=== PATIENT | male | born 1955 | race Caucasian/White ===

== ENCOUNTER 2019-02-23 10:34 | Inpatient (IN) | payer OTHER ==
[2019-02-23 14:03] VITALS: BMI 30.8
--- NOTE | 2019-02-23 15:15 | HP ---
CIWA Score Nausea/Vomitin Muscle Tremors: 3 Anxiety: 3 Agitation: 3 Paroxysmal Sweats: 1-Minimal Palms Moist Orientation: 0-Oriented Tacttile Disturbances: 1-Very Mild Itch/Numbness Auditory Disturbances: 1-Very Mild Visual Disturbances: 0-None Headache: 1-Very Mild CIWA-Ar Total Score: 16 - Admission Criteria [facility] Guidelines: Admission for Medically Managed Detox: Requires at least one of the followin. CIWA greater than 12 2. Seizures within the past 24 hours 3. Delirium tremens within the past 24 hours 4. Hallucinations within the past 24 hours 5. Acute intervention needed for co occurring medical disorder 6. Acute intervention needed for co occurring psychiatric disorder 7. Severe withdrawal that cannot be handled at a lower level of care (continued vomiting, continued diarrhea, abnormal vital signs) requiring intravenous medication and/or fluids 8. Admission ROS [facility] - HPI Chief Complaint: i need help to stop drinking alcohol Allergies/Adverse Reactions: Allergies Allergy/AdvReac Type Severity Reaction Status Date / Time Fish Containing Products Allergy Severe Rash Verified 02/23/19 13:25 No Known Drug Allergies Allergy Verified 02/23/19 16:03 NKDA Allergy Uncoded 02/23/19 13:25 History of Present Illness: this 64 years old male with alcohol dependence,seeking detox,withdrawal symptom, last detox 03/22/15 to 03/26/15 history of hypertension,dm type 2,arthritis,gout,hemorrhoid, history of right inguinal hernia repair but recur syncope alcohol related cellulitis left thigh arthritis of right knee hemorrhoid longest sobriety 17 months plan for rehab after detox Exam Limitations: No Limitations - Ebola screening Have you traveled outside of the country in the last 21 days: No (N) Have you had contact with anyone from an Ebola affected area: No Do you have a fever: No - Review of Systems Constitutional: Loss of Appetite, Malaise, Night Sweats, Changes in sleep, Weakness EENT: reports: Nose Congestion Respiratory: reports: No Symptoms reported Cardiac: reports: No Symptoms Reported GI: reports: Nausea, Poor Appetite, Abdominal cramping : reports: No Symptoms Reported Musculoskeletal: reports: Back Pain, Joint Pain, Muscle Pain, Joint Stiffness, Other (arthritis of right knee) Integumentary: reports: Dryness Neuro: reports: Headache, Tremors Endocrine: reports: No Symptoms Reported, Other (type 2 dm) Hematology: reports: No Symptoms Reported Psychiatric: reports: No Sypmtoms Reported, Judgement Intact, Mood/Affect Appropiate, Orientated x3, Anxious, other (insomnia) Patient History - Patient Medical History Hx Anemia: No Hx Asthma: Yes (ON ALBUTEROL INHALER) Hx Chronic Obstructive Pulmonary Disease (COPD): No Hx Cancer: No Hx Cardiac Disorders: No Hx Congestive Heart Failure: No Hx Hypertension: Yes (ON LISINOPRIL) Hx Hypercholesterolemia: Yes (WAS ON LIPITOR BUT NOT TAKING NOW. RESOLVED PMD AWARE.) HX Cerebrovascular Accident: No Hx Seizures: No Hx Dementia: No Hx Diabetes: Yes (ON METFORMIN) Hx Gastrointestinal Disorders: Yes (ACID REFLUX--ON NEXIUM) Hx Liver Disease: No Hx Genitourinary Disorders: No Hx Sexually Transmitted Disorders: No Hx Renal Disease (ESRD): No Hx Thyroid Disease: No Hx Human Immunodeficiency Virus (HIV): No (LAST 12/16/14 NEGATIVE) Hx Hepatitis C: No Hx Depression: Yes (NO MEDICATION) Hx Suicide Attempt: No (DENIES) Hx Bipolar Disorder: No Hx Schizophrenia: No Other Medical History: no sucidal,no homicidal,arthritis of right knee, deformity of left 2nd toe, - Patient Surgical History Past Surgical History: Yes Hx Neurologic Surgery: No Hx Cataract Extraction: No Hx Cardiac Surgery: No Hx Lung Surgery: No Hx Breast Surgery: No Hx Breast Biopsy: No Hx Abdominal Surgery: Yes ("MESH FOR HERNIA" right in [place] but recurred) Hx Appendectomy: No Hx Cholecystectomy: No Hx Genitourinary Surgery: No Hx Section: No Hx Orthopedic Surgery: No Anesthesia Reaction: No - PPD History Previous Implant?: Yes Documented Results: Negative w/o proof Date: 12/18/14 Results: 0 mm PPD to be Administered?: Yes - Smoking Cessation Smoking history: Current every day smoker Have you smoked in the past 12 months: Yes Aproximately how many cigarettes per day: 40 Cigars Per Day: 0 Hx Chewing Tobacco Use: No Initiated information on smoking cessation: Yes 'Breaking Loose' booklet given: 02/23/19 - Substance & Tx. History Hx Alcohol Use: Yes Hx Substance Use: No Substance Use Type: Alcohol Hx Substance Use Treatment: Yes ([facility] 03/22/15 to 03/26/15) - Substances abused Alcohol Substance route: Oral Frequency: Daily Amount used: 2 pints vodka, case beer/day Age of first use: 17 Date of last use: 02/23/19 Family Disease History - Family Disease History Family Disease History: Heart Disease: Mother (ASTHMA,), Respiratory: Mother, Other: Father (car accident,), Sister (1ST SISTER-GOUT; 2ND SISTER-ASTHMA/EMPHYSEMA) Admission Physical Exam [facility] - Vital Signs Vital Signs: Vital Signs - 24 hr 02/23/19 13:54 Temperature 99 F Pulse Rate 119 H Respiratory 20 Rate Blood Pressure 123/85 - Physical General Appearance: Yes: Moderate Distress, Tremorous, Irritable, Sweating, Anxious HEENTM: Yes: Normal ENT Inspection, [place], Pharynx Normal Respiratory: Yes: Lungs Clear, Normal Breath Sounds, No Respiratory Distress, Other (asthma) Neck: Yes: Within Normal Limits, Supple, Trachea in good position Breast: Yes: Within Normal Limits Cardiology: Yes: Tachycardia Abdominal: Yes: Within Normal Limits, Normal Bowel Sounds, Non Tender, Flat, Soft, Surgical Scar (recurent right inguinal hernia) Genitourinary: Yes: Within Normal Limits Back: Yes: Muscle Spasm Musculoskeletal: Yes: Back pain, Muscle Pain Extremities: Yes: Tremors, Other (swelling with pain right knee deformity of left 2nd toe cellulitis left thigh) Neurological: Yes: power distribution engineer II-XII NML intact, Fully Oriented, Alert, Motor Strength 5/5 Integumentary: Yes: Dry Lymphatic: Yes: Within Normal Limits - Diagnostic (1) Alcohol dependence with uncomplicated withdrawal Status: Acute (2) Asthma Status: Acute Qualifiers: Asthma severity: unspecified severity Asthma persistence: unspecified Asthma complication type: uncomplicated (3) Hypercholesterolemia Status: Acute (4) Syncope Status: Acute Qualifiers: Syncope type: unspecified Qualified Code(s): R55 - Syncope and collapse (5) GERD (gastroesophageal reflux disease) Status: Chronic Qualifiers: Esophagitis presence: without esophagitis Qualified Code(s): K21.9 - Gastro -esophageal reflux disease without esophagitis (6) Gout Status: Chronic Qualifiers: Gout site: unspecified site Gout etiology: unspecified cause Chronicity: chronic Presence of tophus: without tophus Qualified Code(s): M1A.9XX0 - Chronic gout, unspecified, without tophus (tophi) (7) Hypertension Status: Chronic Qualifiers: Hypertension type: essential hypertension Qualified Code(s): I10 - Essential (primary) hypertension (8) Type 2 diabetes mellitus Status: Chronic Qualifiers: Diabetes mellitus rodent exterminator insulin use: without rodent exterminator use Diabetes mellitus complication status: with other specified complication Qualified Code (s): E11.69 - Type 2 diabetes mellitus with other specified complication (9) Cellulitis of left thigh Status: Acute (10) Hemorrhoid Status: Acute Qualifiers: Hemorrhoid type: unspecified Qualified Code(s): K64.9 - Unspecified hemorrhoids Cleared for Admission S - Detox or Rehab [facility] Level of Care: Medically Managed Detox Regimen/Protocol: Librium Inpatient Rehab Admission - Rehab Decision to Admit Inpatient rehab admission?: No
[2019-02-23] MEDS ORDERED: BISMUTH SUBSALICYLATE 524 MG/30 ML UD PO PRN (15:27)
[2019-02-23] MEDS ORDERED: METHOCARBAMOL 500 MG TABLET PO PRN (15:27)
[2019-02-23] MEDS ORDERED: MAGNESIUM CITRATE 300 ML BOTTLE PO PRN (15:27)
[2019-02-23] MEDS ORDERED: NICOTINE POLACRILEX 2 MG GUM BUC PRN (15:27)
[2019-02-23] MEDS ORDERED: ACETAMINOPHEN 325 MG TABLET (FP) PO PRN ×2 (15:27)
[2019-02-23] MEDS ORDERED: chlordiazePOXIDE HCL 25 MG CAPSULE PO PRN (15:27)
[2019-02-23] MEDS ORDERED: MAG HYDROX/AL HYDROX/SIMETH 30 ML UNIT-DOSE CUP PO PRN (15:27)
[2019-02-23] MEDS ORDERED: IBUPROFEN 400 MG TABLET (FP) PO PRN (15:27)
[2019-02-23] MEDS ORDERED: MAGNESIUM HYDROX 2400MG/30ML ORAL SUSPENSION 30 ML CUP PO PRN (15:27)
[2019-02-23] MEDS ORDERED: MENTHOL/PHENOL 1 EACH UD MM PRN (15:27)
[2019-02-23] MEDS ORDERED: hydrOXYzine PAMOATE 25 MG CAPSULE (FP) PO PRN (15:27)
[2019-02-23 16:36] LABS: HEMATOCRIT 35.4 % (35.4-49); MCH 29.3 pg (25.7-33.7); MCHC 33.8 g/dl (32.0-35.9); MEAN CELL VOLUME 86.5 fl (80-96); RBC 4.09 M/mm3 (4.00-5.60); RDW 14.1 % (11.9-15.9); WHITE BLOOD COUNT 6.9 K/mm3 (4.0-10.0)
[2019-02-23 16:42] LABS: ALBUMIN 3.9 g/dl (3.4-5.0); BILIRUBIN,TOTAL 0.2 mg/dL (0.2-1); BLOOD UREA NITROGEN 7.7 mg/dL (7-18); CALCIUM 8.6 mg/dL (8.5-10.1); CREATININE 0.7 mg/dL (0.55-1.3); TOT PROT 7.2 g/dl (6.4-8.2)
[2019-02-23] MEDS: predniSONE 20 MG TABLET (UD) PO SCH (17:18)
[2019-02-23] MEDS: CEPHALEXIN MONOHYDRATE 500 MG CAPSULE (UD) PO SCH ×2 (17:19→23:13)
[2019-02-23] MEDS: LISINOPRIL 20 MG TABLET (FP) PO SCH (17:19)
[2019-02-23] MEDS: metFORMIN HCL 500 MG TABLET (FP) PO SCH (17:19)
[2019-02-23] MEDS: chlordiazePOXIDE HCL 25 MG CAPSULE PO SCH ×2 (17:19→22:26)
[2019-02-23 18:46] LABS: PLATELET COUNT 161 K/MM3 (134-434)
[2019-02-23] MEDS: THIAMINE HCL 100 MG TABLET (FP) PO SCH (22:26)
[2019-02-23] MEDS: MELATONIN 5 MG TABLETS PO PRN (22:26)
[2019-02-23] MEDS: HYDROCORTISONE ACETATE 25 MG/SUPP.RECT PR SCH (22:28)
[2019-02-24] MEDS: CEPHALEXIN MONOHYDRATE 500 MG CAPSULE (UD) PO SCH ×4 (05:29→23:22)
[2019-02-24] MEDS: chlordiazePOXIDE HCL 25 MG CAPSULE PO SCH ×4 (05:29→22:13)
[2019-02-24] MEDS: metFORMIN HCL 500 MG TABLET (FP) PO SCH ×2 (07:56→18:03)
[2019-02-24] MEDS: METOPROLOL TARTRATE 50 MG TABLET (FP) PO SCH (10:12)
[2019-02-24] MEDS: LISINOPRIL 20 MG TABLET (FP) PO SCH (10:12)
[2019-02-24] MEDS: PRENATAL VITAMINS W/ FOLIC ACID TABLET (FP) PO SCH (10:12)
[2019-02-24] MEDS: PANTOPRAZOLE 40 MG TABLET (FP) PO SCH (10:13)
[2019-02-24] MEDS: IBUPROFEN 600 MG TABLET (FP) PO PRN (10:13)
[2019-02-24 10:57] LABS: URINE APPEARANCE CLEAR; URINE BILIRUBIN NEGATIVE (NEGATIVE); URINE COLOR YELLOW; URINE GLUCOSE (UA) NEGATIVE (NEGATIVE); URINE KETONE NEGATIVE (NEGATIVE); URINE LEUK ESTERASE NEGATIVE (NEGATIVE); URINE NITRITE NEGATIVE (NEGATIVE); URINE PROTEIN NEGATIVE (NEGATIVE); URINE UROBILINOGEN 0.2 mg/dL (0.2-1.0)
--- NOTE | 2019-02-24 11:03 | PN ---
S CIWA - CIWA Score Nausea/Vomitin-No Nausea/No Vomiting Muscle Tremors: 2 Anxiety: 2 Agitation: 2 Paroxysmal Sweats: 3 Orientation: 0-Oriented Tacttile Disturbances: 0-None Auditory Disturbances: 0-None Visual Disturbances: 0-None Headache: 2-Mild CIWA-Ar Total Score: 11 S Progress Note (SOAP) Subjective: c/o headache, right knee pain, anxiety, and shakes. Objective: 02/24/19 11:01 Vital Signs 02/24/19 02/24/19 02/24/19 03:30 04:00 04:30 Temperature Pulse Rate 101 H 101 H 94 H Respiratory 18 Rate Blood Pressure 02/24/19 02/24/19 02/24/19 05:00 05:30 06:00 Temperature Pulse Rate 88 82 76 Respiratory 18 18 18 Rate Blood Pressure 02/24/19 02/24/19 02/24/19 06:16 06:30 07:00 Temperature 97.0 F L Pulse Rate 70 70 72 Respiratory 18 18 18 Rate Blood Pressure 139/87 02/24/19 02/24/19 02/24/19 07:30 08:00 08:30 Temperature Pulse Rate 74 76 80 Respiratory 18 18 16 Rate Blood Pressure 02/24/19 09:33 Temperature 97.2 F L Pulse Rate 81 Respiratory 20 Rate Blood Pressure 128/90 Lab Results WBC 6.9 K/mm3 (4.0-10.0) 02/23/19 15:30 RBC 4.09 M/mm3 (4.00-5.60) 02/23/19 15:30 Hgb 12.0 GM/dL (11.7-16.9) 02/23/19 15:30 Hct 35.4 % (35.4-49) 02/23/19 15:30 MCV 86.5 fl (80-96) 02/23/19 15:30 MCHC 33.8 g/dl (32.0-35.9) 02/23/19 15:30 RDW 14.1 % (11.9-15.9) 02/23/19 15:30 Plt Count 161 K/MM3 (134-434) D 02/23/19 15:30 Sodium 138 mmol/L (136-145) 02/23/19 15:30 Potassium 4.0 mmol/L (3.5-5.1) 02/23/19 15:30 Chloride 104 mmol/L (98-107) 02/23/19 15:30 Carbon Dioxide 26 mmol/L (21-32) 02/23/19 15:30 Anion Gap 7 MMOL/L (8-16) L 02/23/19 15:30 BUN 7.7 mg/dL (7-18) 02/23/19 15:30 Creatinine 0.7 mg/dL (0.55-1.3) 02/23/19 15:30 Random Glucose 91 mg/dL (74-106) 02/23/19 15:30 Calcium 8.6 mg/dL (8.5-10.1) 02/23/19 15:30 Labs noted. Assessment: 02/24/19 11:02 AOX3, in no acute distress Full ROM, ambulating in the unit with a cane. Withdrawal symptoms. Plan: continue detox.
[2019-02-24] MEDS: predniSONE 20 MG TABLET (UD) PO SCH ×2 (12:16→22:16)
[2019-02-24] MEDS ORDERED: predniSONE 20 MG TABLET (UD) PO SCH (19:48)
--- NOTE | 2019-02-24 19:50 | PN ---
S Progress Note Note: Prednisone changed to 8pm daily as per patient's request. As per RN, he refused it this morning because he was taking it in the evening at home.
[2019-02-24] MEDS: HYDROCORTISONE ACETATE 25 MG/SUPP.RECT PR SCH (22:13)
[2019-02-24] MEDS: THIAMINE HCL 100 MG TABLET (FP) PO SCH (22:13)
[2019-02-24] MEDS: MELATONIN 5 MG TABLETS PO PRN (22:13)
[2019-02-24] MEDS: NYSTATIN 100,000 UNIT/GM TOPICAL CREAM 15 GM TUBE TP SCH (23:21)
[2019-02-25] MEDS: CEPHALEXIN MONOHYDRATE 500 MG CAPSULE (UD) PO SCH ×4 (05:38→23:08)
[2019-02-25] MEDS: chlordiazePOXIDE HCL 25 MG CAPSULE PO SCH ×2 (05:38→10:37)
[2019-02-25] MEDS: metFORMIN HCL 500 MG TABLET (FP) PO SCH ×2 (06:01→17:27)
[2019-02-25] MEDS: PANTOPRAZOLE 40 MG TABLET (FP) PO SCH (10:36)
[2019-02-25] MEDS: METOPROLOL TARTRATE 50 MG TABLET (FP) PO SCH (10:36)
[2019-02-25] MEDS: PRENATAL VITAMINS W/ FOLIC ACID TABLET (FP) PO SCH (10:37)
[2019-02-25] MEDS: LISINOPRIL 20 MG TABLET (FP) PO SCH (10:37)
[2019-02-25] MEDS: NYSTATIN 100,000 UNIT/GM TOPICAL CREAM 15 GM TUBE TP SCH ×2 (10:38→23:08)
[2019-02-25] MEDS: IBUPROFEN 600 MG TABLET (FP) PO PRN (10:40)
--- NOTE | 2019-02-25 11:59 | PN ---
S CIWA - CIWA Score Nausea/Vomitin-Mild Nausea/No Vomiting Muscle Tremors: 2 Anxiety: 2 Agitation: 2 Paroxysmal Sweats: 1-Minimal Palms Moist Orientation: 0-Oriented Tacttile Disturbances: 0-None Auditory Disturbances: 0-None Visual Disturbances: 1-Very Mild Sensitivity Headache: 1-Very Mild CIWA-Ar Total Score: 10 BHS Progress Note (SOAP) Subjective: CO GENERALIZED DISCOMFORT, ANXIOUS, NOT SLEEPING CO PRURITIC RASH CW BASELINE Objective: 02/25/19 11:56 Laboratory Tests 02/23/19 02/23/19 02/23/19 15:30 15:30 15:30 WBC 6.9 RBC 4.09 Hgb 12.0 Hct 35.4 MCV 86.5 MCH 29.3 MCHC 33.8 RDW 14.1 Plt Count 161 D MPV 7.0 L D Sodium 138 Potassium 4.0 Chloride 104 Carbon Dioxide 26 Anion Gap 7 L BUN 7.7 Creatinine 0.7 Est GFR (CKD-EPI)AfAm 117.22 Est GFR (CKD-EPI)NonAf 101.14 POC Glucometer Random Glucose 91 Calcium 8.6 Total Bilirubin 0.2 AST 27 ALT 27 Alkaline Phosphatase 78 Total Protein 7.2 Albumin 3.9 Urine Color Urine Appearance Urine pH Ur Specific [place] Urine Protein Urine Glucose (UA) Urine Ketones Urine Blood Urine Nitrite Urine Bilirubin Urine Urobilinogen Ur Leukocyte Esterase RPR Titer Nonreactive 02/23/19 02/23/19 02/24/19 15:34 17:22 05:28 WBC RBC Hgb Hct MCV MCH MCHC RDW Plt Count MPV Sodium Potassium Chloride Carbon Dioxide Anion Gap BUN Creatinine Est GFR (CKD-EPI)AfAm Est GFR (CKD-EPI)NonAf POC Glucometer 93 102 106 Random Glucose Calcium Total Bilirubin AST ALT Alkaline Phosphatase Total Protein Albumin Urine Color Urine Appearance Urine pH Ur Specific [place] Urine Protein Urine Glucose (UA) Urine Ketones Urine Blood Urine Nitrite Urine Bilirubin Urine Urobilinogen Ur Leukocyte Esterase RPR Titer 02/24/19 02/24/19 02/25/19 09:00 16:47 05:37 WBC RBC Hgb Hct MCV MCH MCHC RDW Plt Count MPV Sodium Potassium Chloride Carbon Dioxide Anion Gap BUN Creatinine Est GFR (CKD-EPI)AfAm Est GFR (CKD-EPI)NonAf POC Glucometer 110 175 Random Glucose Calcium Total Bilirubin AST ALT Alkaline Phosphatase Total Protein Albumin Urine Color Yellow Urine Appearance Clear Urine pH 5.0 Ur Specific [place] 1.009 L Urine Protein Negative Urine Glucose (UA) Negative Urine Ketones Negative Urine Blood Negative Urine Nitrite Negative Urine Bilirubin Negative Urine Urobilinogen 0.2 Ur Leukocyte Esterase Negative RPR Titer Vital Signs - 24 hr 02/24/19 02/24/19 02/24/19 12:00 12:30 13:00 Temperature Pulse Rate 81 81 81 Respiratory 20 20 18 Rate Blood Pressure 02/24/19 02/24/19 02/24/19 13:30 13:41 14:30 Temperature 98.7 F Pulse Rate 80 71 86 Respiratory 18 18 18 Rate Blood Pressure 137/86 02/24/19 02/24/19 02/24/19 15:00 15:30 16:00 Temperature Pulse Rate 77 76 77 Respiratory 18 18 18 Rate Blood Pressure 02/24/19 02/24/19 02/24/19 16:30 17:00 17:30 Temperature Pulse Rate 78 76 71 Respiratory 18 18 17 Rate Blood Pressure 02/24/19 02/24/19 02/25/19 18:01 21:38 00:30 Temperature 98.1 F 98.4 F Pulse Rate 61 73 Respiratory 18 18 18 Rate Blood Pressure 122/69 133/90 02/25/19 02/25/19 02/25/19 03:30 06:40 09:24 Temperature 96.9 F L 97.7 F Pulse Rate 74 68 Respiratory 18 18 18 Rate Blood Pressure 135/89 126/84 [id number] INTERACTIVE ALERT Assessment: 02/25/19 11:57 Vital Signs - 24 hr 02/24/19 02/24/19 02/24/19 12:00 12:30 13:00 Temperature Pulse Rate 81 81 81 Respiratory 20 20 18 Rate Blood Pressure 02/24/19 02/24/19 02/24/19 13:30 13:41 14:30 Temperature 98.7 F Pulse Rate 80 71 86 Respiratory 18 18 18 Rate Blood Pressure 137/86 02/24/19 02/24/19 02/24/19 15:00 15:30 16:00 Temperature Pulse Rate 77 76 77 Respiratory 18 18 18 Rate Blood Pressure 02/24/19 02/24/19 02/24/19 16:30 17:00 17:30 Temperature Pulse Rate 78 76 71 Respiratory 18 18 17 Rate Blood Pressure 06/02/24/19 02/25/19 18:01 21:38 00:30 Temperature 98.1 F 98.4 F Pulse Rate 61 73 Respiratory 18 18 18 Rate Blood Pressure 122/69 133/90 02/25/19 02/25/19 02/25/19 03:30 06:40 09:24 Temperature 96.9 F L 97.7 F Pulse Rate 74 68 Respiratory 18 18 18 Rate Blood Pressure 135/89 126/84 Laboratory Results - last 24 hr 02/24/19 02/25/19 16:47 05:37 POC Glucometer 110 175 02/25/19 11:57 ALERT ORIENTED INTERACTIVE 02/25/19 11:58 ETOH DEP Plan: CONT DETOX PROTOCOL CONTINUE BASELINE MEDICATIONS AND ADJUNCTS
[2019-02-25] MEDS: BACITRACIN/POLYMYXIN B SULFATE 15 GM TUBE TP SCH ×2 (15:52→23:08)
[2019-02-25] MEDS ORDERED: chlordiazePOXIDE HCL 10 MG CAPSULE PO PRN (17:00)
[2019-02-25] MEDS: chlordiazePOXIDE HCL 10 MG CAPSULE PO SCH ×2 (17:27→22:30)
[2019-02-25] MEDS: predniSONE 20 MG TABLET (UD) PO SCH (22:29)
[2019-02-25] MEDS: THIAMINE HCL 100 MG TABLET (FP) PO SCH (22:29)
[2019-02-25] MEDS: MELATONIN 5 MG TABLETS PO PRN (22:31)
[2019-02-25] MEDS: HYDROCORTISONE ACETATE 25 MG/SUPP.RECT PR SCH (23:07)
[2019-02-26] MEDS: CEPHALEXIN MONOHYDRATE 500 MG CAPSULE (UD) PO SCH ×4 (05:43→23:16)
[2019-02-26] MEDS: IBUPROFEN 600 MG TABLET (FP) PO PRN (05:43)
[2019-02-26] MEDS: chlordiazePOXIDE HCL 10 MG CAPSULE PO SCH ×3 (05:43→17:27)
[2019-02-26] MEDS: metFORMIN HCL 500 MG TABLET (FP) PO SCH ×2 (06:18→17:27)
[2019-02-26] MEDS: NYSTATIN 100,000 UNIT/GM TOPICAL CREAM 15 GM TUBE TP SCH ×2 (10:15→23:00)
[2019-02-26] MEDS: BACITRACIN/POLYMYXIN B SULFATE 15 GM TUBE TP SCH ×2 (10:15→22:12)
[2019-02-26] MEDS: PRENATAL VITAMINS W/ FOLIC ACID TABLET (FP) PO SCH (10:16)
[2019-02-26] MEDS: LISINOPRIL 20 MG TABLET (FP) PO SCH (11:55)
[2019-02-26] MEDS: PANTOPRAZOLE 40 MG TABLET (FP) PO SCH (11:56)
[2019-02-26] MEDS: METOPROLOL TARTRATE 50 MG TABLET (FP) PO SCH (12:04)
[2019-02-26] MEDS ORDERED: ONDANSETRON *ODT* 4 MG TABLET SL PRN (13:01)
--- NOTE | 2019-02-26 14:43 | PN ---
S CIWA - CIWA Score Nausea/Vomitin-No Nausea/No Vomiting Muscle Tremors: None Anxiety: 2 Agitation: 0-Normal Activity Paroxysmal Sweats: No Perspiration Orientation: 0-Oriented Tacttile Disturbances: 2-Mild Itch/Numbness/Burn Auditory Disturbances: 0-None Visual Disturbances: 2-Mild Sensitivity Headache: 0-None Present CIWA-Ar Total Score: 6 BHS Progress Note (SOAP) Subjective: Fatigue, Body Aches. Objective: PATIENT A & O X 3. IN NO ACUTE DISTRESS. 02/26/19 14:42 Vital Signs Temperature 97.0 F L 02/26/19 13:17 Pulse Rate 77 02/26/19 13:17 Respiratory Rate 18 02/26/19 13:17 Blood Pressure 132/84 02/26/19 13:17 O2 Sat by Pulse Oximetry (%) Laboratory Tests 02/23/19 02/23/19 02/23/19 15:30 15:30 15:30 WBC 6.9 RBC 4.09 Hgb 12.0 Hct 35.4 MCV 86.5 MCH 29.3 MCHC 33.8 RDW 14.1 Plt Count 161 D MPV 7.0 L D Sodium 138 Potassium 4.0 Chloride 104 Carbon Dioxide 26 Anion Gap 7 L BUN 7.7 Creatinine 0.7 Est GFR (CKD-EPI)AfAm 117.22 Est GFR (CKD-EPI)NonAf 101.14 POC Glucometer Random Glucose 91 Calcium 8.6 Total Bilirubin 0.2 AST 27 ALT 27 Alkaline Phosphatase 78 Total Protein 7.2 Albumin 3.9 Urine Color Urine Appearance Urine pH Ur Specific [place] Urine Protein Urine Glucose (UA) Urine Ketones Urine Blood Urine Nitrite Urine Bilirubin Urine Urobilinogen Ur Leukocyte Esterase RPR Titer Nonreactive 02/23/19 02/23/19 02/24/19 15:34 17:22 05:28 WBC RBC Hgb Hct MCV MCH MCHC RDW Plt Count MPV Sodium Potassium Chloride Carbon Dioxide Anion Gap BUN Creatinine Est GFR (CKD-EPI)AfAm Est GFR (CKD-EPI)NonAf POC Glucometer 93 102 106 Random Glucose Calcium Total Bilirubin AST ALT Alkaline Phosphatase Total Protein Albumin Urine Color Urine Appearance Urine pH Ur Specific [place] Urine Protein Urine Glucose (UA) Urine Ketones Urine Blood Urine Nitrite Urine Bilirubin Urine Urobilinogen Ur Leukocyte Esterase RPR Titer 02/24/19 02/24/19 02/25/19 09:00 16:47 05:37 WBC RBC Hgb Hct MCV MCH MCHC RDW Plt Count MPV Sodium Potassium Chloride Carbon Dioxide Anion Gap BUN Creatinine Est GFR (CKD-EPI)AfAm Est GFR (CKD-EPI)NonAf POC Glucometer 110 175 Random Glucose Calcium Total Bilirubin AST ALT Alkaline Phosphatase Total Protein Albumin Urine Color Yellow Urine Appearance Clear Urine pH 5.0 Ur Specific [place] 1.009 L Urine Protein Negative Urine Glucose (UA) Negative Urine Ketones Negative Urine Blood Negative Urine Nitrite Negative Urine Bilirubin Negative Urine Urobilinogen 0.2 Ur Leukocyte Esterase Negative RPR Titer 02/25/19 02/26/19 16:30 05:41 WBC RBC Hgb Hct MCV MCH MCHC RDW Plt Count MPV Sodium Potassium Chloride Carbon Dioxide Anion Gap BUN Creatinine Est GFR (CKD-EPI)AfAm Est GFR (CKD-EPI)NonAf POC Glucometer 152 199 Random Glucose Calcium Total Bilirubin AST ALT Alkaline Phosphatase Total Protein Albumin Urine Color Urine Appearance Urine pH Ur Specific [place] Urine Protein Urine Glucose (UA) Urine Ketones Urine Blood Urine Nitrite Urine Bilirubin Urine Urobilinogen Ur Leukocyte Esterase RPR Titer LABS NOTED. Assessment: 02/26/19 14:42 WITHDRAWAL SYMPTOMS. Plan: CONTINUE DETOX. PATIENT SCHEDULED FOR D/C TOMORROW.
[2019-02-26] MEDS: predniSONE 20 MG TABLET (UD) PO SCH (22:09)
[2019-02-26] MEDS: THIAMINE HCL 100 MG TABLET (FP) PO SCH (22:09)
[2019-02-26] MEDS: MELATONIN 5 MG TABLETS PO PRN (22:09)
[2019-02-26] MEDS: HYDROCORTISONE ACETATE 25 MG/SUPP.RECT PR SCH (22:09)
[2019-02-27] MEDS: IBUPROFEN 600 MG TABLET (FP) PO PRN (05:13)
[2019-02-27] MEDS: chlordiazePOXIDE HCL 10 MG CAPSULE PO SCH (05:14)
[2019-02-27] MEDS: CEPHALEXIN MONOHYDRATE 500 MG CAPSULE (UD) PO SCH (05:14)
[2019-02-27] MEDS: metFORMIN HCL 500 MG TABLET (FP) PO SCH (06:15)
[2019-02-27 09:38] VITALS: BP 121/82; PULSE 76; TEMP 97.2
--- NOTE | 2019-02-27 13:08 | DS ---
[facility] Detox Discharge Summary Admission Date: 02/23/19 Discharge Date: 02/27/19 - History Present History: Alcohol Dependence Additional Comments: PATIENT IS RETURNING TO [facility] ON [address], [place] TO ATTEND TO PERSONAL MATTER; THEN WILL SEEK OUT LOCAL 12-STEP / AA OUTPATIENT SUPPORT GROUP PROGRAM ON HIS OWN. DISCHARGE PRESCRIPTIONS FOR KELFLEX (PRESCRIBED TO PATIENT WHILE ADMITTED FOR DETOX FOR CELLULITIS OF LEFT THIGH) AND FOR PREDNISONE TAPER (PRESCRIBED FOR PATIENT WHILE ADMITTED FOR DETOX FOR TREATMENT OF GOUT) SENT TO PATIENT'S PHARMACY ([facility], [place], [place]) FOR DISCHARGE AFTERCARE PATIENT ADVISED TO TO FLOOR ATTENDANT AND COMPLETE FULL COURSES OF BOTH PRESCRIPTIONS. PER PHARMACIST AT [facility] ([place], [place]), PATIENT CURRENTLY HAS RENEWALS ON OUTPATIENT PRESCRIBED (HOME) MEDICATIONS AT THE PHARMACY THAT CAN LATER BE PICKED UP BY PATIENT. PATIENT ADVISED TO FOLLOW-UP WITH PRINT INSPECT[employer] DR. CACERES ( [place], [place]) AFTER DISCHARGE FROM DETOX FOR GENERAL MEDICAL ASSESSMENT AND FOR HISTORY OF CELLULITIS OF LEFT THIGH, FOR HISTORY OF GOUT, AND FOR HISTORY OF PREDNISONE PRESCRIPTION. PATIENT VERBALIZED UNDERSTANDING OF ALL INSTRUCTIONS / RECOMMENDATIONS PRESENTED TO HIM AT TIME OF DISCHARGE FROM DETOX UNIT. PATIENT WAS DISCHARGED FORM DETOX UNIT IN STABLE MEDICAL CONDITION. Pertinent Past History: Asthma, History Of Syncope, G.E.R.D., Hypercholesterolemia, Gout, HTN, History Of Hemorrhoids, Cellulitis of Left Thigh, Type II DM, History Of Arthritis of Right Knee, Depression, History Of Deformity Of Second Toe On Left Foot, History Of Recurrent Inguinal Hernia (with Repair). - Physical Exam Results Vital Signs: Vital Signs Temperature 97.2 F L 02/27/19 08:35 Pulse Rate 76 02/27/19 08:35 Respiratory Rate 18 02/27/19 08:35 Blood Pressure 121/82 02/27/19 08:35 O2 Sat by Pulse Oximetry (%) Pertinent Admission Physical Exam Findings: WITHDRAWAL SYMPTOMS. Laboratory Tests 02/23/19 02/23/19 02/23/19 15:30 15:30 15:30 WBC 6.9 RBC 4.09 Hgb 12.0 Hct 35.4 MCV 86.5 MCH 29.3 MCHC 33.8 RDW 14.1 Plt Count 161 D MPV 7.0 L D Sodium 138 Potassium 4.0 Chloride 104 Carbon Dioxide 26 Anion Gap 7 L BUN 7.7 Creatinine 0.7 Est GFR (CKD-EPI)AfAm 117.22 Est GFR (CKD-EPI)NonAf 101.14 POC Glucometer Random Glucose 91 Calcium 8.6 Total Bilirubin 0.2 AST 27 ALT 27 Alkaline Phosphatase 78 Total Protein 7.2 Albumin 3.9 Urine Color Urine Appearance Urine pH Ur Specific Alice Urine Protein Urine Glucose (UA) Urine Ketones Urine Blood Urine Nitrite Urine Bilirubin Urine Urobilinogen Ur Leukocyte Esterase RPR Titer Nonreactive 02/23/19 02/23/19 02/24/19 15:34 17:22 05:28 WBC RBC Hgb Hct MCV MCH MCHC RDW Plt Count MPV Sodium Potassium Chloride Carbon Dioxide Anion Gap BUN Creatinine Est GFR (CKD-EPI)AfAm Est GFR (CKD-EPI)NonAf POC Glucometer 93 102 106 Random Glucose Calcium Total Bilirubin AST ALT Alkaline Phosphatase Total Protein Albumin Urine Color Urine Appearance Urine pH Ur Specific Alice Urine Protein Urine Glucose (UA) Urine Ketones Urine Blood Urine Nitrite Urine Bilirubin Urine Urobilinogen Ur Leukocyte Esterase RPR Titer 02/24/19 02/24/19 02/25/19 09:00 16:47 05:37 WBC RBC Hgb Hct MCV MCH MCHC RDW Plt Count MPV Sodium Potassium Chloride Carbon Dioxide Anion Gap BUN Creatinine Est GFR (CKD-EPI)AfAm Est GFR (CKD-EPI)NonAf POC Glucometer 110 175 Random Glucose Calcium Total Bilirubin AST ALT Alkaline Phosphatase Total Protein Albumin Urine Color Yellow Urine Appearance Clear Urine pH 5.0 Ur Specific Alice 1.009 L Urine Protein Negative Urine Glucose (UA) Negative Urine Ketones Negative Urine Blood Negative Urine Nitrite Negative Urine Bilirubin Negative Urine Urobilinogen 0.2 Ur Leukocyte Esterase Negative RPR Titer 02/25/19 02/26/19 02/26/19 16:30 05:41 16:22 WBC RBC Hgb Hct MCV MCH MCHC RDW Plt Count MPV Sodium Potassium Chloride Carbon Dioxide Anion Gap BUN Creatinine Est GFR (CKD-EPI)AfAm Est GFR (CKD-EPI)NonAf POC Glucometer 152 199 141 Random Glucose Calcium Total Bilirubin AST ALT Alkaline Phosphatase Total Protein Albumin Urine Color Urine Appearance Urine pH Ur Specific Alice Urine Protein Urine Glucose (UA) Urine Ketones Urine Blood Urine Nitrite Urine Bilirubin Urine Urobilinogen Ur Leukocyte Esterase RPR Titer 02/27/19 05:13 WBC RBC Hgb Hct MCV MCH MCHC RDW Plt Count MPV Sodium Potassium Chloride Carbon Dioxide Anion Gap BUN Creatinine Est GFR (CKD-EPI)AfAm Est GFR (CKD-EPI)NonAf POC Glucometer 186 Random Glucose Calcium Total Bilirubin AST ALT Alkaline Phosphatase Total Protein Albumin Urine Color Urine Appearance Urine pH Ur Specific Alice Urine Protein Urine Glucose (UA) Urine Ketones Urine Blood Urine Nitrite Urine Bilirubin Urine Urobilinogen Ur Leukocyte Esterase RPR Titer LABS NOTED. - Treatment Hospital Course: Detox Protocol Followed, Detoxed Safely, Responded well, Discharged Condition Good Patient has Accepted a Rehab Referral to: PT. WILL SEEK OUT LOCAL 12-STEP / AA OUTPATIENT SUPPORT GROUP ON HIS OWN. - Medication Discharge Medications: Ambulatory Orders Albuterol Sulfate Inhaler - [Ventolin HFA Inhaler -] 2 inh PO PRN PRN 03/22/15 Esomeprazole Mag Trihydrate [Nexium] 40 mg PO DAILY 03/22/15 Lisinopril [Prinivil -] 40 mg PO DAILY 03/22/15 Metoprolol Tartrate [Lopressor -] 50 mg PO DAILY 03/22/15 Budesonide/Formeterol Fumarate [SYMBICORT 160/4.5mcg -] 2 puff IH BID #1 inhaler 09/01/16 Docusate Sodium [Colace -] 100 mg PO TID #90 capsule 09/01/16 Guaifenesin Dm [Robitussin Dm -] 10 ml PO Q6H PRN #0 cup 09/01/16 Aspi 02/23/19 Aspirin [ASA -] 02/23/19 Colchicine [Colcrys] 0.6 mg PO 02/23/19 Ibuprofen 600 mg PO PRN 02/23/19 Metformin HCl [Glucophage] 1,000 BID 02/23/19 traZODone HCL [Trazodone HCl] 100 mg PO 02/23/19 Cephalexin Monohydrate [Keflex -] 500 mg PO Q6H 7 Days #28 capsule 02/26/19 Prednisone See Taper PO DAILY 6 Days #6 tab.ds.pk 02/27/19 - Diagnosis (1) Alcohol dependence with uncomplicated withdrawal Status: Acute (2) Asthma Status: Acute Qualifiers: Asthma severity: unspecified severity Asthma persistence: unspecified Asthma complication type: uncomplicated Qualified Code(s): J45.909 - Unspecified asthma, uncomplicated (3) Cellulitis of left thigh Status: Acute (4) Hemorrhoid Status: Acute Qualifiers: Hemorrhoid type: unspecified Qualified Code(s): K64.9 - Unspecified hemorrhoids (5) Hypercholesterolemia Status: Acute (6) Syncope Status: Acute Qualifiers: Syncope type: unspecified Qualified Code(s): R55 - Syncope and collapse (7) GERD (gastroesophageal reflux disease) Status: Chronic Qualifiers: Esophagitis presence: without esophagitis Qualified Code(s): K21.9 - Gastro -esophageal reflux disease without esophagitis (8) Gout Status: Chronic Qualifiers: Gout site: unspecified site Gout etiology: unspecified cause Chronicity: chronic Presence of tophus: without tophus Qualified Code(s): M1A.9XX0 - Chronic gout, unspecified, without tophus (tophi) (9) Hypertension Status: Chronic Qualifiers: Hypertension type: essential hypertension Qualified Code(s): I10 - Essential (primary) hypertension (10) Type 2 diabetes mellitus Status: Chronic Qualifiers: Diabetes mellitus intermodal customer service insulin use: without intermodal customer service use Diabetes mellitus complication status: with other specified complication Qualified Code (s): E11.69 - Type 2 diabetes mellitus with other specified complication - AMA Did Patient Leave Against Medical Advice: No
== END 2019-02-27 09:39 | disposition home or self-care (01) | DRG 897 ==
LOC: YASAS 10:34 → Y3N 15:47
PROVIDERS: ADMIT Surgery; ATTEND Surgery
PROC: HZ2ZZZZ Detoxification Services for Substance Abuse Treatment (ICD-10-PCS; principal; 2019-02-23)
DX: F10.230 Alcohol dependence with withdrawal, uncomplicated (principal); L03.116 Cellulitis of left lower limb; I10 Essential (primary) hypertension; E11.9 Type 2 diabetes mellitus without complications; Z79.84 Long term (current) use of oral hypoglycemic drugs; E78.00 Pure hypercholesterolemia, unspecified; K21.9 Gastro-esophageal reflux disease without esophagitis; K64.9 Unspecified hemorrhoids; J45.909 Unspecified asthma, uncomplicated; R55 Syncope and collapse; M1A.9XX0 Chronic gout, unspecified, without tophus (tophi); M12.9 Arthropathy, unspecified; Z91.013 Allergy to seafood; Z59.0 Homelessness
CPT/HCPCS: 36415; 80053; 81003; 82962; 85027; 86593

== ENCOUNTER 2019-05-22 18:53 | Inpatient (IN) | payer OTHER ==
[2019-05-22 19:21] VITALS: BMI 31.5
--- NOTE | 2019-05-22 22:23 | HP ---
CIWA Score Nausea/Vomitin Muscle Tremors: 3 Anxiety: 3 Agitation: 4-Moderately Restless Paroxysmal Sweats: 1-Minimal Palms Moist Orientation: 0-Oriented Tacttile Disturbances: 0-None Auditory Disturbances: 0-None Visual Disturbances: 0-None Headache: 2-Mild CIWA-Ar Total Score: 16 - Admission Criteria OASAS Guidelines: Admission for Medically Managed Detox: Requires at least one of the followin. CIWA greater than 12 2. Seizures within the past 24 hours 3. Delirium tremens within the past 24 hours 4. Hallucinations within the past 24 hours 5. Acute intervention needed for co occurring medical disorder 6. Acute intervention needed for co occurring psychiatric disorder 7. Severe withdrawal that cannot be handled at a lower level of care (continued vomiting, continued diarrhea, abnormal vital signs) requiring intravenous medication and/or fluids 8. Admission ROS [facility] Chief Complaint: Alcohol withdrawal symptoms Allergies/Adverse Reactions: Allergies Allergy/AdvReac Type Severity Reaction Status Date / Time Fish Containing Products Allergy Severe Rash Verified 02/23/19 13:25 No Known Drug Allergies Allergy Verified 02/23/19 16:03 NKDA Allergy Uncoded 02/23/19 13:25 History of Present Illness: 64 years old male with a long history of alcohol dependence is seeking admission to detox. Patient has been in previous detox and reports 17 months of sobriety. He has medical history of Diabetes Type 2, asthma, hypertension and depression. Patient denies suicidal ideation at this time Exam Limitations: No Limitations - Ebola screening Have you traveled outside of the country in the last 21 days: No Have you had contact with anyone from an Ebola affected area: No Have you been sick,other than usual withdrawal symptoms: No Do you have a fever: No - Review of Systems Constitutional: Chills, Loss of Appetite, Changes in sleep EENT: reports: Nose Congestion Respiratory: reports: No Symptoms reported Cardiac: reports: No Symptoms Reported GI: reports: Diarrhea, Poor Appetite, Poor Fluid Intake, Vomiting, Abdominal cramping : reports: No Symptoms Reported Musculoskeletal: reports: Joint Pain, Muscle Pain Integumentary: reports: Dryness, Flushing Neuro: reports: Tremors Endocrine: reports: No Symptoms Reported Hematology: reports: No Symptoms Reported Psychiatric: reports: Mood/Affect Appropiate, Agitated, Anxious, Depressed Other Systems: Reviewed and Negative Patient History - Patient Medical History Hx Anemia: No Hx Asthma: Yes (Albuterol, breo) Hx Chronic Obstructive Pulmonary Disease (COPD): No Hx Cancer: No Hx Cardiac Disorders: No Hx Congestive Heart Failure: No Hx Hypertension: Yes (Metoprolol and Lisinopril) Hx Hypercholesterolemia: Yes (WAS ON LIPITOR BUT NOT TAKING NOW. RESOLVED PMD AWARE.) HX Cerebrovascular Accident: No Hx Seizures: No Hx Dementia: No Hx Diabetes: Yes (Metformin) Hx Gastrointestinal Disorders: No Hx Liver Disease: No Hx Genitourinary Disorders: No Hx Sexually Transmitted Disorders: No Hx Renal Disease (ESRD): No Hx Thyroid Disease: No Hx Human Immunodeficiency Virus (HIV): No (LAST 12/16/14 NEGATIVE) Hx Hepatitis C: No Hx Depression: No Hx Suicide Attempt: No (Denies suicial ideation at [facility]) Hx Bipolar Disorder: No Hx Schizophrenia: No - Patient Surgical History Past Surgical History: Yes Hx Neurologic Surgery: No Hx Cataract Extraction: No Hx Cardiac Surgery: No Hx Lung Surgery: No Hx Breast Surgery: No Hx Breast Biopsy: No Hx Abdominal Surgery: Yes ("MESH FOR HERNIA" right in [place] but recurred) Hx Appendectomy: No Hx Cholecystectomy: No Hx Genitourinary Surgery: No Hx Section: No Hx Orthopedic Surgery: No Anesthesia Reaction: No - PPD History Previous Implant?: Yes Documented Results: Negative w/o proof Date: 12/18/14 Results: 0 mm PPD to be Administered?: Yes - Reproductive History Patient is a Female of Child Bearing Age (11 -55 yrs old): No (male) Patient : No - Smoking Cessation Smoking history: Current every day smoker Have you smoked in the past 12 months: Yes Aproximately how many cigarettes per day: 40 Cigars Per Day: 0 Hx Chewing Tobacco Use: No Initiated information on smoking cessation: Yes 'Breaking Loose' booklet given: 05/22/19 - Substance & Tx. History Hx Alcohol Use: Yes Hx Substance Use: No Substance Use Type: Alcohol Hx Substance Use Treatment: Yes ([facility]) - Substances abused Alcohol Substance route: Oral Frequency: Daily Amount used: 2 pints vodka, case beer/day Age of first use: 17 Date of last use: 05/22/19 Family Disease History - Family Disease History Family Disease History: Heart Disease: Mother (ASTHMA,), Respiratory: Mother, Other: Father (car accident,), Sister (1ST SISTER-GOUT; 2ND SISTER-ASTHMA/EMPHYSEMA) Admission Physical Exam [facility] - Vital Signs Vital Signs: Vital Signs - 24 hr 05/22/19 19:06 Temperature 98.6 F Pulse Rate 124 H Respiratory 19 Rate Blood Pressure 111/82 - Physical General Appearance: Yes: Moderate Distress, Tremorous, Irritable, Anxious HEENTM: Yes: Within Normal Limits Respiratory: Yes: Lungs Clear, Normal Breath Sounds, No Respiratory Distress Neck: Yes: Supple Breast: Yes: Breast Exam Deferred Cardiology: Yes: Regular Rhythm, Regular Rate Abdominal: Yes: Normal Bowel Sounds Genitourinary: Yes: Within Normal Limits Back: Yes: Normal Inspection Musculoskeletal: Yes: Back pain, Muscle Pain Extremities: Yes: Tremors Neurological: Yes: Alert, Normal Mood/Affect Integumentary: Yes: Warm Lymphatic: Yes: Within Normal Limits Cleared for Admission [facility] - Detox or Rehab [facility] Level of Care: Medically Managed Detox Regimen/Protocol: Librium Breathalyzer - Breathalyzer Breathalyzer: 0.212 Urine Drug Screen - Test Device Lot number: [id number] Expiration date: 02/09/21 - Control Is test valid?: Yes - Results Drug screen NEGATIVE: No Urine drug screen results: BZO-Benzodiazepines Inpatient Rehab Admission - Rehab Decision to Admit Inpatient rehab admission?: No
[2019-05-22] MEDS ORDERED: BISMUTH SUBSALICYLATE 524 MG/30 ML UD PO PRN (22:43)
[2019-05-22] MEDS ORDERED: MENTHOL/PHENOL 1 EACH UD MM PRN (22:43)
[2019-05-22] MEDS ORDERED: NICOTINE POLACRILEX 2 MG GUM BUC PRN (22:43)
[2019-05-22] MEDS ORDERED: ACETAMINOPHEN 325 MG TABLET (FP) PO PRN ×2 (22:43)
[2019-05-22] MEDS ORDERED: hydrOXYzine PAMOATE 25 MG CAPSULE (FP) PO PRN (22:43)
[2019-05-22] MEDS ORDERED: chlordiazePOXIDE HCL 25 MG CAPSULE PO PRN (22:43)
[2019-05-22] MEDS ORDERED: MAGNESIUM CITRATE 300 ML BOTTLE PO PRN (22:43)
[2019-05-22] MEDS ORDERED: ALBUTEROL SO4 8 GM HFA INHALER IH PRN (22:45)
[2019-05-22] MEDS: chlordiazePOXIDE HCL 25 MG CAPSULE PO SCH (23:55)
[2019-05-22] MEDS: MELATONIN 5 MG TABLETS PO PRN (23:58)
[2019-05-23] MEDS: chlordiazePOXIDE HCL 25 MG CAPSULE PO SCH ×4 (05:30→22:22)
[2019-05-23] MEDS: metFORMIN HCL 500 MG TABLET (FP) PO SCH ×2 (07:26→17:06)
[2019-05-23] MEDS: METHOCARBAMOL 500 MG TABLET PO PRN ×2 (07:26→17:07)
--- NOTE | 2019-05-23 10:22 | EKG ---
Test Reason : Blood Pressure : / mmHG Vent. Rate : 093 BPM Atrial Rate : 093 BPM P-R Int : 140 ms QRS Dur : 090 ms QT Int : 368 ms P-R-T Axes : 064 004 055 degrees QTc Int : 457 ms SINUS RHYTHM WITH OCCASIONAL PREMATURE VENTRICULAR COMPLEXES OTHERWISE NORMAL ECG WHEN COMPARED WITH ECG OF 28-AUG-2016 09:08, PREMATURE VENTRICULAR COMPLEXES ARE NOW PRESENT Confirmed by DIXIE MARIA, CARMELA ([id number]) on 05/23/2019 10:22:09 AM Referred By: JUDI COBOS Confirmed By:CARMELA COLIN MD
[2019-05-23] MEDS: METOPROLOL TARTRATE 50 MG TABLET (FP) PO SCH (10:37)
[2019-05-23] MEDS: PRENATAL VITAMINS W/ FOLIC ACID TABLET (FP) PO SCH (10:37)
[2019-05-23] MEDS: COLCHICINE 0.6 MG CAP PO SCH (10:37)
[2019-05-23] MEDS: LISINOPRIL 20 MG TABLET (FP) PO SCH (10:37)
[2019-05-23] MEDS: NICOTINE 14 MG/24 HOURS TOPICAL PATCH TD SCH (10:40)
[2019-05-23] MEDS: BUDESONIDE/FORMETEROL FUMARATE 160/4.5 mcg INHALER IH SCH ×2 (10:40→22:21)
[2019-05-23] MEDS ORDERED: PNEUMOC 13-VAL CONJ-DIP CRM/PF 0.5 ML DISP.SYRIN IM ONE (11:00)
--- NOTE | 2019-05-23 11:26 | PN ---
[facility] CIWA - CIWA Score Nausea/Vomitin-Mild Nausea/No Vomiting Muscle Tremors: 2 Anxiety: 3 Agitation: 3 Paroxysmal Sweats: 1-Minimal Palms Moist Orientation: 0-Oriented Tacttile Disturbances: 1-Very Mild Itch/Numbness Auditory Disturbances: 0-None Visual Disturbances: 0-None Headache: 2-Mild CIWA-Ar Total Score: 13 [facility] Progress Note (SOAP) Subjective: ALERT,IRRITABLE,ANXIOUS,INTERRUPTED SLEEP,PAIN IN THE RIGHT KNEE,AMBULATION WITH CANE Objective: 05/23/19 11:25 Vital Signs Temperature 98.5 F 05/23/19 09:26 Pulse Rate 96 H 05/23/19 09:26 Respiratory Rate 20 05/23/19 09:26 Blood Pressure 139/89 05/23/19 09:26 O2 Sat by Pulse Oximetry (%) Laboratory Last Values POC Glucometer 99 UNITS (80-120) 05/23/19 05:32 LABS PENDING Assessment: 05/23/19 11:25 WITHDRAWAL SIGNS AND SYMPTOM Plan: CONTINUE DETOX LIBRIUM REGIMEN,BGM MONITORING
[2019-05-23] MEDS ORDERED: PNEUMOCOCCAL 23 VACCINE 0.5 ML VIAL IM ONE (12:00)
[2019-05-23 12:28] LABS: HEMOGLOBIN 12.5 GM/dL (11.7-16.9); MCH 29.1 pg (25.7-33.7); MCHC 33.8 g/dl (32.0-35.9); MEAN PLT VOLUME 7.9 fl (7.5-11.1); PLATELET COUNT 152 K/MM3 (134-434); RDW 14.1 % (11.9-15.9); WHITE BLOOD COUNT 4.7 K/mm3 (4.0-10.0)
[2019-05-23 12:34] LABS: BILIRUBIN,TOTAL 0.5 mg/dL (0.2-1); BLOOD UREA NITROGEN 10.8 mg/dL (7-18); CREATININE 0.8 mg/dL (0.55-1.3); POTASSIUM 4.4 mmol/L (3.5-5.1); TOT PROT 7.4 g/dl (6.4-8.2)
--- NOTE | 2019-05-23 17:32 | CONSULT ---
[facility] Psychiatric Consult - Data Date of interview: 05/23/19 Admission source: [facility] Identifying data: Patient is a 64 year old [place] male, father of two, residing in a fci and is supported by [facility]. This is one of multiple admissions for patient. Patient admitted to for alcohol dependence. Substance Abuse History: Substance & Tx. History. Hx Alcohol Use: Yes. Hx Substance Use: No. Substance Use Type: Alcohol. Hx Substance Use Treatment: Yes ([facility] - Substances abused. Alcohol. Substance route: Oral. Frequency: Daily. Amount used: 2 pints vodka, case beer/day. Age of first use : 17. Date of last use: 05/22/19 Medical History: Asthma, hypertension, hypercholesterolemia, diabetes, hernia repair with mesh Psychiatric History: Patient's first psychiatric contact was in 1967 after his father and was treated with psychotherapy. Mr. Gonzales didn't see a psychiatrist again until 2019 at [facility] outpatient clinic. States that he seeked psychiatric treatment to address his history of insomnia. He was prescribed ambien but refused to accept the prescription because he was told it was addicting. Mr. Gonzales discontinued treatment and saw his Primary care physician who currently prescribes him trazodone 100mg HS. Patient denies h/o psychiatric hospitalizations and suicide attempt. At present he reports stable mood but is experiencing difficulty sleeping. Physical/Sexual Abuse/Trauma History: denies. Mental Status Exam - Mental Status Exam Alert and Oriented to: Time, Place, Person Cognitive Function: Good Patient Appearance: Well Groomed Mood: Euthymic Affect: Mood Congruent Patient Behavior: Cooperative Speech Pattern: Appropriate Voice Loudness: Normal Thought Process: Goal Oriented Thought Disorder: Not Present Hallucinations: Denies Suicidal Ideation: Denies Homicidal Ideation: Denies Insight/Judgement: Poor Sleep: Poorly Appetite: Fair Muscle strength/Tone: Normal Gait/Station: Other (Ambulates with a cane.) Psychiatric Findings - Problem List ([place] 1, 2,3) (1) Alcohol-induced sleep disorder Current Visit: Yes Status: Acute (2) Alcohol dependence Current Visit: Yes Status: Acute (3) Alcohol dependence with uncomplicated withdrawal Current Visit: Yes Status: Acute - Initial Treatment Plan Initial Treatment Plan: Psychoeducation provided. Detoxification in progress. Will order Trazodone 50mg HS. Benefits and side effects discussed. Verbal consent given.
[2019-05-23] MEDS: traZODone HCL 50 MG TABLET (FP) PO SCH (22:22)
[2019-05-23] MEDS: THIAMINE HCL 100 MG TABLET (FP) PO SCH (22:22)
[2019-05-23] MEDS: MELATONIN 5 MG TABLETS PO PRN (22:23)
[2019-05-23] MEDS: IBUPROFEN 400 MG TABLET (FP) PO PRN (22:25)
[2019-05-24] MEDS: chlordiazePOXIDE HCL 25 MG CAPSULE PO SCH ×4 (05:26→22:11)
[2019-05-24] MEDS: IBUPROFEN 400 MG TABLET (FP) PO PRN (05:38)
[2019-05-24] MEDS: METHOCARBAMOL 500 MG TABLET PO PRN ×2 (05:38→22:11)
[2019-05-24] MEDS: metFORMIN HCL 500 MG TABLET (FP) PO SCH ×2 (07:00→17:05)
[2019-05-24] MEDS: LISINOPRIL 20 MG TABLET (FP) PO SCH (10:06)
[2019-05-24] MEDS: COLCHICINE 0.6 MG CAP PO SCH (10:06)
[2019-05-24] MEDS: BUDESONIDE/FORMETEROL FUMARATE 160/4.5 mcg INHALER IH SCH ×2 (10:07→22:11)
[2019-05-24] MEDS: METOPROLOL TARTRATE 50 MG TABLET (FP) PO SCH (10:07)
[2019-05-24] MEDS: NICOTINE 14 MG/24 HOURS TOPICAL PATCH TD SCH (10:07)
[2019-05-24] MEDS: PRENATAL VITAMINS W/ FOLIC ACID TABLET (FP) PO SCH (10:07)
--- NOTE | 2019-05-24 12:19 | PN ---
[facility] CIWA - CIWA Score Nausea/Vomitin-Mild Nausea/No Vomiting Muscle Tremors: 3 Anxiety: 3 Agitation: 2 Paroxysmal Sweats: 2 Orientation: 0-Oriented Tacttile Disturbances: 0-None Auditory Disturbances: 0-None Visual Disturbances: 0-None Headache: 0-None Present CIWA-Ar Total Score: 11 [facility] Progress Note (SOAP) Subjective: doing well with librium detox regimen sleep better at night social with peers in day room less tremor Objective: 05/24/19 12:18 Vital Signs Temperature 98.1 F 05/24/19 09:12 Pulse Rate 81 05/24/19 09:12 Respiratory Rate 18 05/24/19 09:12 Blood Pressure 117/82 05/24/19 09:12 O2 Sat by Pulse Oximetry (%) Laboratory Last Values WBC 4.7 K/mm3 (4.0-10.0) 05/23/19 08:56 RBC 4.30 M/mm3 (4.00-5.60) 05/23/19 08:56 Hgb 12.5 GM/dL (11.7-16.9) 05/23/19 08:56 Hct 37.0 % (35.4-49) 05/23/19 08:56 MCV 86.0 fl (80-96) 05/23/19 08:56 MCH 29.1 pg (25.7-33.7) 05/23/19 08:56 MCHC 33.8 g/dl (32.0-35.9) 05/23/19 08:56 RDW 14.1 % (11.9-15.9) 05/23/19 08:56 Plt Count 152 K/MM3 (134-434) 05/23/19 08:56 MPV 7.9 fl (7.5-11.1) D 05/23/19 08:56 Sodium 136 mmol/L (136-145) 05/23/19 08:56 Potassium 4.4 mmol/L (3.5-5.1) 05/23/19 08:56 Chloride 104 mmol/L (98-107) 05/23/19 08:56 Carbon Dioxide 26 mmol/L (21-32) 05/23/19 08:56 Anion Gap 6 MMOL/L (8-16) L 05/23/19 08:56 BUN 10.8 mg/dL (7-18) 05/23/19 08:56 Creatinine 0.8 mg/dL (0.55-1.3) 05/23/19 08:56 Est GFR (CKD-EPI)AfAm 110.96 05/23/19 08:56 Est GFR (CKD-EPI)NonAf 95.74 05/23/19 08:56 POC Glucometer 81 UNITS (80-120) 05/24/19 05:25 Random Glucose 134 mg/dL (74-106) H 05/23/19 08:56 Calcium 9.0 mg/dL (8.5-10.1) 05/23/19 08:56 Total Bilirubin 0.5 mg/dL (0.2-1) 05/23/19 08:56 AST 32 U/L (15-37) 05/23/19 08:56 ALT 26 U/L (13-61) 05/23/19 08:56 Alkaline Phosphatase 84 U/L (45-117) 05/23/19 08:56 Total Protein 7.4 g/dl (6.4-8.2) 05/23/19 08:56 Albumin 4.0 g/dl (3.4-5.0) 05/23/19 08:56 RPR Titer Nonreactive (NONREACTIVE) 05/23/19 08:56 HIV 1&2 Antibody Screen Negative 05/23/19 08:56 HIV P24 Antigen Negative 05/23/19 08:56 lab noted Assessment: 05/24/19 12:19 alcohol withdrawal sxs Plan: continue librium detox regimen
[2019-05-24] MEDS: MAGNESIUM HYDROX 2400MG/30ML ORAL SUSPENSION 30 ML CUP PO PRN (19:10)
[2019-05-24] MEDS: traZODone HCL 50 MG TABLET (FP) PO SCH (22:11)
[2019-05-24] MEDS: THIAMINE HCL 100 MG TABLET (FP) PO SCH (22:11)
[2019-05-24] MEDS: MELATONIN 5 MG TABLETS PO PRN (22:13)
[2019-05-25] MEDS ORDERED: chlordiazePOXIDE HCL 10 MG CAPSULE PO PRN
[2019-05-25] MEDS: MAGNESIUM HYDROX 2400MG/30ML ORAL SUSPENSION 30 ML CUP PO PRN (05:52)
[2019-05-25] MEDS: chlordiazePOXIDE HCL 10 MG CAPSULE PO SCH ×4 (05:53→22:12)
[2019-05-25] MEDS: metFORMIN HCL 500 MG TABLET (FP) PO SCH ×2 (07:57→17:24)
[2019-05-25] MEDS: METOPROLOL TARTRATE 50 MG TABLET (FP) PO SCH (10:32)
[2019-05-25] MEDS: LISINOPRIL 20 MG TABLET (FP) PO SCH (10:32)
[2019-05-25] MEDS: COLCHICINE 0.6 MG CAP PO SCH (10:33)
[2019-05-25] MEDS: PRENATAL VITAMINS W/ FOLIC ACID TABLET (FP) PO SCH (10:33)
[2019-05-25] MEDS: BUDESONIDE/FORMETEROL FUMARATE 160/4.5 mcg INHALER IH SCH ×2 (10:33→22:12)
[2019-05-25] MEDS: NICOTINE 14 MG/24 HOURS TOPICAL PATCH TD SCH (10:33)
[2019-05-25] MEDS: MAG HYDROX/AL HYDROX/SIMETH 30 ML UNIT-DOSE CUP PO PRN ×2 (10:37→22:13)
[2019-05-25] MEDS ORDERED: PANTOPRAZOLE 40 MG TABLET (FP) PO ONE (15:36)
[2019-05-25] MEDS ORDERED: ARTIFICIAL TEARS (POLYVINYL ALCOHOL) OPTH DROPS OU PRN (15:38)
--- NOTE | 2019-05-25 15:38 | PN ---
[facility] CIWA - CIWA Score Nausea/Vomitin (Stomach Cramping, Heartburn.) Muscle Tremors: 3 Anxiety: 3 Agitation: 1-Slight > Activity Paroxysmal Sweats: No Perspiration Orientation: 0-Oriented Tacttile Disturbances: 1-Very Mild Itch/Numbness Auditory Disturbances: 1-Very Mild Visual Disturbances: 0-None Headache: 0-None Present CIWA-Ar Total Score: 11 [facility] Progress Note (SOAP) Subjective: Anxious, Tremors, Stomach Cramping, Heartburn. Objective: PATIENT A & O X 3. IN NO ACUTE DISTRESS. 05/25/19 15:39 Vital Signs Temperature 97.4 F L 05/25/19 13:06 Pulse Rate 75 05/25/19 13:06 Respiratory Rate 18 05/25/19 13:06 Blood Pressure 113/77 05/25/19 13:06 O2 Sat by Pulse Oximetry (%) Laboratory Tests 05/23/19 05/23/19 05/23/19 05:32 08:56 08:56 WBC 4.7 RBC 4.30 Hgb 12.5 Hct 37.0 MCV 86.0 MCH 29.1 MCHC 33.8 RDW 14.1 Plt Count 152 MPV 7.9 D Sodium Potassium Chloride Carbon Dioxide Anion Gap BUN Creatinine Est GFR (CKD-EPI)AfAm Est GFR (CKD-EPI)NonAf POC Glucometer 99 Random Glucose Calcium Total Bilirubin AST ALT Alkaline Phosphatase Total Protein Albumin RPR Titer HIV 1&2 Antibody Screen Negative HIV P24 Antigen Negative 05/23/19 05/23/19 05/23/19 08:56 08:56 16:39 WBC RBC Hgb Hct MCV MCH MCHC RDW Plt Count MPV Sodium 136 Potassium 4.4 Chloride 104 Carbon Dioxide 26 Anion Gap 6 L BUN 10.8 Creatinine 0.8 Est GFR (CKD-EPI)AfAm 110.96 Est GFR (CKD-EPI)NonAf 95.74 POC Glucometer 116 Random Glucose 134 H Calcium 9.0 Total Bilirubin 0.5 AST 32 ALT 26 Alkaline Phosphatase 84 Total Protein 7.4 Albumin 4.0 RPR Titer Nonreactive HIV 1&2 Antibody Screen HIV P24 Antigen 05/24/19 05/24/19 05/25/19 05:25 16:32 05:49 WBC RBC Hgb Hct MCV MCH MCHC RDW Plt Count MPV Sodium Potassium Chloride Carbon Dioxide Anion Gap BUN Creatinine Est GFR (CKD-EPI)AfAm Est GFR (CKD-EPI)NonAf POC Glucometer 81 130 116 Random Glucose Calcium Total Bilirubin AST ALT Alkaline Phosphatase Total Protein Albumin RPR Titer HIV 1&2 Antibody Screen HIV P24 Antigen LABS NOTED. Assessment: 05/25/19 15:39 WITHDRAWAL SYMPTOMS. Plan: CONTINUE DETOX. PROTONIX, 40 MG PO DAILY FOR HEARTBURN.
[2019-05-25] MEDS: traZODone HCL 50 MG TABLET (FP) PO SCH (22:12)
[2019-05-25] MEDS: MELATONIN 5 MG TABLETS PO PRN (22:12)
[2019-05-25] MEDS: THIAMINE HCL 100 MG TABLET (FP) PO SCH (22:12)
[2019-05-26] MEDS ORDERED: chlordiazePOXIDE HCL 10 MG CAPSULE PO SCH (05:00)
[2019-05-26] MEDS: PANTOPRAZOLE 40 MG TABLET (FP) PO SCH (05:13)
[2019-05-26] MEDS: IBUPROFEN 400 MG TABLET (FP) PO PRN (05:15)
[2019-05-26] MEDS: metFORMIN HCL 500 MG TABLET (FP) PO SCH ×2 (08:10→17:49)
[2019-05-26] MEDS: NICOTINE 14 MG/24 HOURS TOPICAL PATCH TD SCH (10:31)
[2019-05-26] MEDS: PRENATAL VITAMINS W/ FOLIC ACID TABLET (FP) PO SCH (10:31)
[2019-05-26] MEDS: LISINOPRIL 20 MG TABLET (FP) PO SCH (10:31)
[2019-05-26] MEDS: METOPROLOL TARTRATE 50 MG TABLET (FP) PO SCH (10:31)
[2019-05-26] MEDS: COLCHICINE 0.6 MG CAP PO SCH (10:31)
[2019-05-26] MEDS: BUDESONIDE/FORMETEROL FUMARATE 160/4.5 mcg INHALER IH SCH ×2 (10:32→21:48)
--- NOTE | 2019-05-26 13:53 | PN ---
S CIWA - CIWA Score Nausea/Vomitin-No Nausea/No Vomiting Muscle Tremors: 2 Anxiety: 3 Agitation: 2 Paroxysmal Sweats: No Perspiration Orientation: 0-Oriented Tacttile Disturbances: 0-None Auditory Disturbances: 0-None Visual Disturbances: 0-None Headache: 0-None Present CIWA-Ar Total Score: 7 BHS Progress Note (SOAP) Subjective: Anxious, Tremors. Objective: PATIENT A & O X 3, OBSERVED AMBULATING ON DETOX UNIT UNASSISTED. IN NO ACUTE DISTRESS. 05/26/19 13:52 Vital Signs Temperature 97.0 F L 05/26/19 09:30 Pulse Rate 76 05/26/19 09:30 Respiratory Rate 18 05/26/19 09:30 Blood Pressure 109/76 05/26/19 09:30 O2 Sat by Pulse Oximetry (%) Laboratory Tests 05/23/19 05/23/19 05/23/19 05:32 08:56 08:56 WBC 4.7 RBC 4.30 Hgb 12.5 Hct 37.0 MCV 86.0 MCH 29.1 MCHC 33.8 RDW 14.1 Plt Count 152 MPV 7.9 D Sodium Potassium Chloride Carbon Dioxide Anion Gap BUN Creatinine Est GFR (CKD-EPI)AfAm Est GFR (CKD-EPI)NonAf POC Glucometer 99 Random Glucose Calcium Total Bilirubin AST ALT Alkaline Phosphatase Total Protein Albumin RPR Titer HIV 1&2 Antibody Screen Negative HIV P24 Antigen Negative 05/23/19 05/23/19 05/23/19 08:56 08:56 16:39 WBC RBC Hgb Hct MCV MCH MCHC RDW Plt Count MPV Sodium 136 Potassium 4.4 Chloride 104 Carbon Dioxide 26 Anion Gap 6 L BUN 10.8 Creatinine 0.8 Est GFR (CKD-EPI)AfAm 110.96 Est GFR (CKD-EPI)NonAf 95.74 POC Glucometer 116 Random Glucose 134 H Calcium 9.0 Total Bilirubin 0.5 AST 32 ALT 26 Alkaline Phosphatase 84 Total Protein 7.4 Albumin 4.0 RPR Titer Nonreactive HIV 1&2 Antibody Screen HIV P24 Antigen 05/24/19 05/24/19 05/25/19 05:25 16:32 05:49 WBC RBC Hgb Hct MCV MCH MCHC RDW Plt Count MPV Sodium Potassium Chloride Carbon Dioxide Anion Gap BUN Creatinine Est GFR (CKD-EPI)AfAm Est GFR (CKD-EPI)NonAf POC Glucometer 81 130 116 Random Glucose Calcium Total Bilirubin AST ALT Alkaline Phosphatase Total Protein Albumin RPR Titer HIV 1&2 Antibody Screen HIV P24 Antigen 05/25/19 05/26/19 16:41 05:12 WBC RBC Hgb Hct MCV MCH MCHC RDW Plt Count MPV Sodium Potassium Chloride Carbon Dioxide Anion Gap BUN Creatinine Est GFR (CKD-EPI)AfAm Est GFR (CKD-EPI)NonAf POC Glucometer 117 96 Random Glucose Calcium Total Bilirubin AST ALT Alkaline Phosphatase Total Protein Albumin RPR Titer HIV 1&2 Antibody Screen HIV P24 Antigen LABS NOTED. Assessment: 05/26/19 13:52 WITHDRAWAL SYMPTOMS. Plan: CONTINUE DETOX. PATIENT SCHEDULED FOR D/C FROM DETOX UNIT TOMORROW.
[2019-05-26] MEDS ORDERED: chlordiazePOXIDE HCL 10 MG CAPSULE PO ONE ×2 (16:00→22:00)
[2019-05-26] MEDS: MAGNESIUM HYDROX 2400MG/30ML ORAL SUSPENSION 30 ML CUP PO PRN (16:22)
[2019-05-26] MEDS: THIAMINE HCL 100 MG TABLET (FP) PO SCH (21:48)
[2019-05-26] MEDS: MELATONIN 5 MG TABLETS PO PRN (21:48)
[2019-05-26] MEDS: traZODone HCL 50 MG TABLET (FP) PO SCH (21:48)
[2019-05-27] MEDS ORDERED: chlordiazePOXIDE HCL 10 MG CAPSULE PO ONE (05:00)
[2019-05-27] MEDS: PANTOPRAZOLE 40 MG TABLET (FP) PO SCH (05:39)
[2019-05-27] MEDS: IBUPROFEN 400 MG TABLET (FP) PO PRN (05:39)
[2019-05-27 06:35] VITALS: TEMP 97.4
[2019-05-27] MEDS: metFORMIN HCL 500 MG TABLET (FP) PO SCH (07:28)
[2019-05-27 09:11] VITALS: BP 134/84; PULSE 63
[2019-05-27] MEDS: COLCHICINE 0.6 MG CAP PO SCH (09:56)
[2019-05-27] MEDS: PRENATAL VITAMINS W/ FOLIC ACID TABLET (FP) PO SCH (09:56)
[2019-05-27] MEDS: LISINOPRIL 20 MG TABLET (FP) PO SCH (09:56)
[2019-05-27] MEDS: BUDESONIDE/FORMETEROL FUMARATE 160/4.5 mcg INHALER IH SCH (09:57)
[2019-05-27] MEDS: METOPROLOL TARTRATE 50 MG TABLET (FP) PO SCH (09:57)
[2019-05-27] MEDS: NICOTINE 14 MG/24 HOURS TOPICAL PATCH TD SCH (10:41)
--- NOTE | 2019-05-27 14:18 | DS ---
[facility] Detox Discharge Summary Admission Date: 05/22/19 Discharge Date: 05/27/19 - History Present History: Alcohol Dependence Additional Comments: 64 years old male admitted on on 05/22/19 for alcohol withdrawal sx management doing well with libirum detox regimen no complication through out the detox stay sitting on the edge of the bed eating breakfast denies dizziness denies shortness of breath no chest pain seen by psychiatrist treated with trazodone 50 mg po patient is alert oriented x 3 cardiac S1S2 no murmur noted respiratory clear lung bilaterally on auscultation abodmen soft no rebound tenderness - Physical Exam Results Vital Signs: Vital Signs Temperature 97.4 F L 05/27/19 09:10 Pulse Rate 63 05/27/19 09:10 Respiratory Rate 18 05/27/19 09:10 Blood Pressure 134/84 05/27/19 09:10 O2 Sat by Pulse Oximetry (%) Pertinent Admission Physical Exam Findings: alcohol withdrawal sx Laboratory Last Values WBC 4.7 K/mm3 (4.0-10.0) 05/23/19 08:56 RBC 4.30 M/mm3 (4.00-5.60) 05/23/19 08:56 Hgb 12.5 GM/dL (11.7-16.9) 05/23/19 08:56 Hct 37.0 % (35.4-49) 05/23/19 08:56 MCV 86.0 fl (80-96) 05/23/19 08:56 MCH 29.1 pg (25.7-33.7) 05/23/19 08:56 MCHC 33.8 g/dl (32.0-35.9) 05/23/19 08:56 RDW 14.1 % (11.9-15.9) 05/23/19 08:56 Plt Count 152 K/MM3 (134-434) 05/23/19 08:56 MPV 7.9 fl (7.5-11.1) D 05/23/19 08:56 Sodium 136 mmol/L (136-145) 05/23/19 08:56 Potassium 4.4 mmol/L (3.5-5.1) 05/23/19 08:56 Chloride 104 mmol/L (98-107) 05/23/19 08:56 Carbon Dioxide 26 mmol/L (21-32) 05/23/19 08:56 Anion Gap 6 MMOL/L (8-16) L 05/23/19 08:56 BUN 10.8 mg/dL (7-18) 05/23/19 08:56 Creatinine 0.8 mg/dL (0.55-1.3) 05/23/19 08:56 Est GFR (CKD-EPI)AfAm 110.96 05/23/19 08:56 Est GFR (CKD-EPI)NonAf 95.74 05/23/19 08:56 POC Glucometer 124 UNITS (80-120) 05/27/19 05:41 Random Glucose 134 mg/dL (74-106) H 05/23/19 08:56 Calcium 9.0 mg/dL (8.5-10.1) 05/23/19 08:56 Total Bilirubin 0.5 mg/dL (0.2-1) 05/23/19 08:56 AST 32 U/L (15-37) 05/23/19 08:56 ALT 26 U/L (13-61) 05/23/19 08:56 Alkaline Phosphatase 84 U/L (45-117) 05/23/19 08:56 Total Protein 7.4 g/dl (6.4-8.2) 05/23/19 08:56 Albumin 4.0 g/dl (3.4-5.0) 05/23/19 08:56 RPR Titer Nonreactive (NONREACTIVE) 05/23/19 08:56 HIV 1&2 Antibody Screen Negative 05/23/19 08:56 HIV P24 Antigen Negative 05/23/19 08:56 - Treatment Hospital Course: Detox Protocol Followed, Detoxed Safely, Responded well, Discharged Condition Good, Rehab Referral Accepted Patient has Accepted a [facility] Referral [facility] - Medication Discharge Medications: Ambulatory Orders Esomeprazole Mag Trihydrate [Nexium] 40 mg PO DAILY 03/22/15 Aspirin [ASA -] 81 mg PO DAILY 02/23/19 Colchicine [Colcrys] 0.6 mg PO DAILY 02/23/19 Ibuprofen 600 mg PO PRN 02/23/19 Metoprolol Tartrate [Lopressor -] 50 mg PO DAILY 30 Days #30 tablet 05/26/19 Albuterol Sulfate Inhaler - [Ventolin HFA Inhaler -] 2 inh PO PRN PRN #1 inhaler 05/27/19 Budesonide/Formeterol Fumarate [SYMBICORT 160/4.5mcg -] 2 puff IH BID #1 inhaler 05/27/19 Lisinopril [Prinivil -] 40 mg PO DAILY #30 tablet 05/27/19 Metformin HCl [Glucophage] 1,000 mg PO BID #60 tablet 05/27/19 - Diagnosis (1) Alcohol dependence with uncomplicated withdrawal Status: Acute (2) Asthma Status: Chronic Qualifiers: Asthma severity: mild Asthma persistence: intermittent Asthma complication type: uncomplicated Qualified Code(s): J45.20 - Mild intermittent asthma, uncomplicated (3) GERD (gastroesophageal reflux disease) Status: Chronic Qualifiers: Esophagitis presence: without esophagitis Qualified Code(s): K21.9 - Gastro -esophageal reflux disease without esophagitis (4) Hypertension Status: Chronic Qualifiers: Hypertension type: essential hypertension Qualified Code(s): I10 - Essential (primary) hypertension (5) Type 2 diabetes mellitus Status: Chronic Qualifiers: Diabetes mellitus dedicated intermodal truck driver insulin use: without dedicated intermodal truck driver use Diabetes mellitus complication status: with other specified complication Qualified Code (s): E11.69 - Type 2 diabetes mellitus with other specified complication - AMA Did Patient Leave Against Medical Advice: No CIWA Score - CIWA Score Nausea/Vomitin-No Nausea/No Vomiting Muscle Tremors: 1-None Visible, but [place] Anxiety: 1-Mildly Anxious Agitation: 1-Slight > Activity Paroxysmal Sweats: No Perspiration Orientation: 0-Oriented Tacttile Disturbances: 0-None Auditory Disturbances: 0-None Visual Disturbances: 0-None Headache: 0-None Present CIWA-Ar Total Score: 3
--- NOTE | 2019-05-28 14:10 | PN ---
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
--- NOTE | 2019-05-28 14:31 | EKG ---
Test Reason : Blood Pressure : / mmHG Vent. Rate : 093 BPM Atrial Rate : 093 BPM P-R Int : 146 ms QRS Dur : 090 ms QT Int : 368 ms P-R-T Axes : 056 -39 037 degrees QTc Int : 457 ms NORMAL SINUS RHYTHM LEFT AXIS DEVIATION ABNORMAL ECG WHEN COMPARED WITH ECG OF 22-MAY-2019 23:00, PREMATURE VENTRICULAR COMPLEXES ARE NO LONGER PRESENT Confirmed by MACY AZUL MD ([id number]) on 05/28/2019 2:30:49 PM Referred By: DARA ESPOSITO Confirmed By:MACY AZUL MD
== END 2019-05-27 10:03 | disposition home or self-care (01) | DRG 897 ==
LOC: YASAS 18:53 → Y3N 22:56
PROVIDERS: ADMIT Surgery; ATTEND Surgery
PROC: HZ2ZZZZ Detoxification Services for Substance Abuse Treatment (ICD-10-PCS; principal; 2019-05-22)
DX: F10.230 Alcohol dependence with withdrawal, uncomplicated (principal); F10.282 Alcohol dependence with alcohol-induced sleep disorder; F17.210 Nicotine dependence, cigarettes, uncomplicated; I10 Essential (primary) hypertension; K21.9 Gastro-esophageal reflux disease without esophagitis; J45.20 Mild intermittent asthma, uncomplicated; E11.69 Type 2 diabetes mellitus with other specified complication; E78.00 Pure hypercholesterolemia, unspecified; Z79.84 Long term (current) use of oral hypoglycemic drugs; Z91.013 Allergy to seafood
CPT/HCPCS: 36415; 80053; 82962; 85027; 86593; 87389; 93005; 93010

== ENCOUNTER 2019-07-21 09:32 | Inpatient (IN) | payer OTHER ==
[2019-07-21 10:29] VITALS: BMI 32.3
--- NOTE | 2019-07-21 11:22 | HP ---
CIWA Score Nausea/Vomitin Muscle Tremors: 2 Anxiety: 3 Agitation: 3 Paroxysmal Sweats: No Perspiration Orientation: 0-Oriented Tacttile Disturbances: 1-Very Mild Itch/Numbness Auditory Disturbances: 0-None Visual Disturbances: 0-None Headache: 2-Mild CIWA-Ar Total Score: 13 - Admission Criteria OASAS Guidelines: Admission for Medically Managed Detox: Requires at least one of the followin. CIWA greater than 12 2. Seizures within the past 24 hours 3. Delirium tremens within the past 24 hours 4. Hallucinations within the past 24 hours 5. Acute intervention needed for co occurring medical disorder 6. Acute intervention needed for co occurring psychiatric disorder 7. Severe withdrawal that cannot be handled at a lower level of care (continued vomiting, continued diarrhea, abnormal vital signs) requiring intravenous medication and/or fluids 8. Admitting History and Physical - Past Medical History Cardiovascular: Yes: HTN, Hyperlipdemia Endocrine: Yes: Diabetes Mellitus - Smoking History Smoking history: Current every day smoker Have you smoked in the past 12 months: Yes Aproximately how many cigarettes per day: 40 - Alcohol/Substance Use Hx Alcohol Use: Yes Admission ROS [facility] Chief Complaint: i need help to stop drinking alcohol Allergies/Adverse Reactions: Allergies Allergy/AdvReac Type Severity Reaction Status Date / Time Fish Containing Products Allergy Severe Rash Verified 07/21/19 10:13 No Known Drug Allergies Allergy Verified 07/21/19 10:13 NKDA Allergy Uncoded 07/21/19 10:13 History of Present Illness: this 64 years old male with alcohol dependence,seeking detox,seen in [facility] night, denied seizure syncope type 2 dm,hypertension, asthma right inguinal hernia right knee arthritis right rotator cuff injury,s/p surgery multiple admissions in detox ,last 05/22/19 to 05/27/19 [facility] keep relapsing longest sobriety 2 years ambulation with cane relapsed after the of mother Exam Limitations: No Limitations - Ebola screening Have you traveled outside of the country in the last 21 days: No (N) Have you had contact with anyone from an Ebola affected area: No Do you have a fever: No - Review of Systems Constitutional: Loss of Appetite, Night Sweats, Changes in sleep, Weakness EENT: reports: Nose Congestion Respiratory: reports: No Symptoms reported Cardiac: reports: Palpitations GI: reports: Nausea, Abdominal cramping, Other (right inguinal herhia) : reports: No Symptoms Reported Musculoskeletal: reports: Back Pain, Joint Pain, Muscle Pain Integumentary: reports: Dryness Neuro: reports: Headache, Tremors Endocrine: reports: No Symptoms Reported Hematology: reports: No Symptoms Reported Psychiatric: reports: No Sypmtoms Reported, Judgement Intact, Mood/Affect Appropiate, Orientated x3, other Other Systems: Reviewed and Negative Patient History - Patient Medical History Hx Anemia: No Hx Asthma: Yes (Albuterol, breo) Hx Chronic Obstructive Pulmonary Disease (COPD): No Hx Cancer: No Hx Cardiac Disorders: No Hx Congestive Heart Failure: No Hx Hypertension: Yes (Metoprolol and Lisinopril) Hx Hypercholesterolemia: Yes (WAS ON LIPITOR BUT NOT TAKING NOW. RESOLVED PMD AWARE.) HX Cerebrovascular Accident: No Hx Seizures: No Hx Dementia: No Hx Diabetes: Yes (Metformin) Hx Gastrointestinal Disorders: No Hx Liver Disease: No Hx Genitourinary Disorders: No Hx Sexually Transmitted Disorders: No Hx Renal Disease (ESRD): No Hx Thyroid Disease: No Hx Human Immunodeficiency Virus (HIV): No (LAST 12/16/14 NEGATIVE) Hx Hepatitis C: No Hx Depression: No Hx Suicide Attempt: No (Denies suicial ideation at [facility]) Hx Bipolar Disorder: No Hx Schizophrenia: No Other Medical History: no suicidal,no homiciidal - Patient Surgical History Past Surgical History: Yes Hx Neurologic Surgery: No Hx Cataract Extraction: No Hx Cardiac Surgery: No Hx Lung Surgery: No Hx Breast Surgery: No Hx Breast Biopsy: No Hx Abdominal Surgery: Yes ("MESH FOR HERNIA" right in [place] but recurred) Hx Appendectomy: No Hx Cholecystectomy: No Hx Genitourinary Surgery: No Hx Section: No Hx Orthopedic Surgery: No Anesthesia Reaction: No - PPD History Previous Implant?: Yes Documented Results: Negative w/o proof Implanted On Prior R Admission?: Yes Date: 12/18/14 Results: 0 mm PPD to be Administered?: Yes - Smoking Cessation Smoking history: Current every day smoker Have you smoked in the past 12 months: Yes Aproximately how many cigarettes per day: 40 Cigars Per Day: 0 Hx Chewing Tobacco Use: No Initiated information on smoking cessation: Yes 'Breaking Loose' booklet given: 07/21/19 - Substance & Tx. History Hx Alcohol Use: Yes Hx Substance Use: No Substance Use Type: Alcohol Hx Substance Use Treatment: Yes ([facility] 05/22/19 to 05/27/19) - Substances abused Alcohol Substance route: Oral Frequency: Daily Amount used: 2 1/2 pints vodka and more then a case beer/day Age of first use: 17 Date of last use: 07/21/19 Admission Physical Exam [facility] - Vital Signs Vital Signs: Vital Signs - 24 hr 07/21/19 10:23 Temperature 98.1 F Pulse Rate 90 Respiratory 20 Rate Blood Pressure 157/103 H - Physical General Appearance: Yes: Moderate Distress, Tremorous, Irritable, Anxious HEENTM: Yes: Normal ENT Inspection, JUNIE, Pharynx Normal Respiratory: Yes: Lungs Clear, Normal Breath Sounds, No Respiratory Distress Neck: Yes: Within Normal Limits, Supple, Trachea in good position Breast: Yes: Within Normal Limits Cardiology: Yes: Within Normal Limits, Regular Rhythm, Regular Rate, S1, S2 Abdominal: Yes: Normal Bowel Sounds, Non Tender, Soft, Surgical Scar, Other ( right inguinal hernia) Genitourinary: Yes: Within Normal Limits Back: Yes: Muscle Spasm Musculoskeletal: Yes: Back pain, Muscle Pain Extremities: Yes: Tremors Neurological: Yes: lawn care technician II-XII NML intact, Fully Oriented, Alert, Motor Strength 5/5 Integumentary: Yes: Dry Lymphatic: Yes: Within Normal Limits - Diagnostic (1) Alcohol dependence with uncomplicated withdrawal Current Visit: No Status: Acute (2) Hypercholesterolemia Current Visit: No Status: Acute (3) Syncope Current Visit: No Status: Acute Qualifiers: Syncope type: unspecified Qualified Code(s): R55 - Syncope and collapse (4) Asthma Current Visit: No Status: Chronic Qualifiers: Asthma severity: mild Asthma persistence: intermittent Asthma complication type: uncomplicated Qualified Code(s): J45.20 - Mild intermittent asthma, uncomplicated (5) Hypertension Current Visit: No Status: Chronic Qualifiers: Hypertension type: essential hypertension Qualified Code(s): I10 - Essential (primary) hypertension (6) Type 2 diabetes mellitus Current Visit: No Status: Chronic Qualifiers: Diabetes mellitus intermodal owner operator truck driver insulin use: without intermodal owner operator truck driver use Diabetes mellitus complication status: with other specified complication Qualified Code (s): E11.69 - Type 2 diabetes mellitus with other specified complication (7) Arthritis of right knee Current Visit: Yes Status: Acute (8) Use of cane as ambulatory aid Current Visit: Yes Status: Acute Cleared for Admission [facility] - Detox or Rehab [facility] Level of Care: Medically Managed Detox Regimen/Protocol: Librium Breathalyzer - Breathalyzer Breathalyzer: 0.212 Urine Drug Screen - Test Device Lot number: [id number] Expiration date: 02/09/21 - Control Is test valid?: Yes - Results Drug screen NEGATIVE: No Urine drug screen results: BZO-Benzodiazepines Inpatient Rehab Admission - Rehab Decision to Admit Inpatient rehab admission?: No
[2019-07-21] MEDS ORDERED: BISMUTH SUBSALICYLATE 524 MG/30 ML UD PO PRN (11:35)
[2019-07-21] MEDS ORDERED: MAGNESIUM CITRATE 300 ML BOTTLE PO PRN (11:35)
[2019-07-21] MEDS ORDERED: MAGNESIUM HYDROX 2400MG/30ML ORAL SUSPENSION 30 ML CUP PO PRN (11:35)
[2019-07-21] MEDS ORDERED: hydrOXYzine PAMOATE 25 MG CAPSULE (FP) PO PRN (11:35)
[2019-07-21] MEDS ORDERED: IBUPROFEN 400 MG TABLET (FP) PO PRN (11:35)
[2019-07-21] MEDS ORDERED: MELATONIN 5 MG TABLETS PO PRN (11:35)
[2019-07-21] MEDS ORDERED: MENTHOL/PHENOL 1 EACH UD MM PRN (11:35)
[2019-07-21] MEDS ORDERED: ACETAMINOPHEN 325 MG TABLET (FP) PO PRN ×2 (11:35)
[2019-07-21] MEDS ORDERED: MAG HYDROX/AL HYDROX/SIMETH 30 ML UNIT-DOSE CUP PO PRN (11:35)
[2019-07-21] MEDS ORDERED: ALBUTEROL SO4 8 GM HFA INHALER IH PRN (11:38)
[2019-07-21] MEDS ORDERED: METOPROLOL TARTRATE 50 MG TABLET (FP) PO ONE (11:48)
[2019-07-21] MEDS: LISINOPRIL 20 MG TABLET (FP) PO SCH (13:49)
[2019-07-21] MEDS: BUDESONIDE/FORMETEROL FUMARATE 160/4.5 mcg INHALER IH SCH ×2 (13:49→22:16)
[2019-07-21] MEDS: chlordiazePOXIDE HCL 25 MG CAPSULE PO PRN (13:55)
[2019-07-21] MEDS: HYDROCORTISONE 2.5% TOPICAL CREAM 30 GM TUBE TP SCH (14:56)
[2019-07-21] MEDS: FAMOTIDINE 10 MG TABLET PO SCH (14:56)
[2019-07-21] MEDS: chlordiazePOXIDE HCL 25 MG CAPSULE PO SCH ×2 (17:45→22:16)
[2019-07-21] MEDS: METHOCARBAMOL 500 MG TABLET PO PRN (17:45)
[2019-07-21] MEDS: metFORMIN HCL 500 MG TABLET (FP) PO SCH (17:45)
[2019-07-21] MEDS: ATORVASTATIN CA 40 MG TABLET (FP) PO SCH (22:16)
[2019-07-21] MEDS: THIAMINE HCL 100 MG TABLET (FP) PO SCH (22:16)
[2019-07-22] MEDS: chlordiazePOXIDE HCL 25 MG CAPSULE PO PRN (03:39)
[2019-07-22] MEDS: chlordiazePOXIDE HCL 25 MG CAPSULE PO SCH ×4 (05:58→22:46)
[2019-07-22] MEDS: METHOCARBAMOL 500 MG TABLET PO PRN (05:59)
[2019-07-22] MEDS: metFORMIN HCL 500 MG TABLET (FP) PO SCH ×2 (07:37→17:59)
[2019-07-22] MEDS ORDERED: METOPROLOL TARTRATE 50 MG TABLET (FP) PO SCH (10:00)
[2019-07-22] MEDS ORDERED: PRENATAL VITAMINS W/ FOLIC ACID TABLET (FP) PO SCH (10:00)
[2019-07-22] MEDS ORDERED: ASPIRIN 81 MG CHEWABLE TABLETS PO SCH (10:00)
[2019-07-22] MEDS: LISINOPRIL 20 MG TABLET (FP) PO SCH (10:18)
[2019-07-22] MEDS: FAMOTIDINE 10 MG TABLET PO SCH (10:19)
[2019-07-22] MEDS: BUDESONIDE/FORMETEROL FUMARATE 160/4.5 mcg INHALER IH SCH ×2 (10:19→22:47)
[2019-07-22] MEDS: HYDROCORTISONE 2.5% TOPICAL CREAM 30 GM TUBE TP SCH (10:19)
[2019-07-22] MEDS: IBUPROFEN 600 MG TABLET (FP) PO SCH (10:20)
[2019-07-22 10:28] LABS: HEMATOCRIT 38.1 % (35.4-49); HEMOGLOBIN 12.5 GM/dL (11.7-16.9); MCH 28.9 pg (25.7-33.7); MCHC 32.8 g/dl (32.0-35.9); MEAN CELL VOLUME 88.1 fl (80-96); MEAN PLT VOLUME 7.9 fl (7.5-11.1); PLATELET COUNT 129 K/MM3 (134-434); RBC 4.33 M/mm3 (4.00-5.60); RDW 14.7 % (11.9-15.9); WHITE BLOOD COUNT 4.2 K/mm3 (4.0-10.0)
[2019-07-22 10:42] LABS: ALBUMIN 3.9 g/dl (3.4-5.0); BILIRUBIN,TOTAL 1.8 mg/dL (0.2-1); BLOOD UREA NITROGEN 7.8 mg/dL (7-18); CALCIUM 8.8 mg/dL (8.5-10.1); CREATININE 0.7 mg/dL (0.55-1.3); POTASSIUM 4.2 mmol/L (3.5-5.1); TOT PROT 6.5 g/dl (6.4-8.2)
--- NOTE | 2019-07-22 15:56 | PN ---
[facility] CIWA - CIWA Score Nausea/Vomitin-Mild Nausea/No Vomiting Muscle Tremors: 4-Moderate,w/Arms Extend Anxiety: 4-Mod. Anxious/Guarded Agitation: 3 Paroxysmal Sweats: 3 Orientation: 0-Oriented Tacttile Disturbances: 0-None Auditory Disturbances: 0-None Visual Disturbances: 0-None Headache: 0-None Present CIWA-Ar Total Score: 15 BHS Progress Note (SOAP) Subjective: Sweating, chills, tremor, diarrhea, interrupted sleep; request preparation H for hemorrhoid (only suppository available) Objective: 07/22/19 15:52 Last Vital Signs Temp Pulse Resp BP Pulse Ox 99 F 83 20 134/90 07/22/19 14:14 07/22/19 14:14 07/22/19 14:14 07/22/19 14:14 Elevated b/p noted, has htn: on med Laboratory Tests 07/21/19 07/22/19 07/22/19 16:33 05:58 07:40 WBC RBC Hgb Hct MCV MCH MCHC RDW Plt Count MPV Sodium 138 Potassium 4.2 Chloride 105 Carbon Dioxide 28 Anion Gap 5 L BUN 7.8 Creatinine 0.7 Est GFR (CKD-EPI)AfAm 117.22 Est GFR (CKD-EPI)NonAf 101.14 POC Glucometer 122 75 Random Glucose 106 Calcium 8.8 Total Bilirubin 1.8 H AST 44 H ALT 31 Alkaline Phosphatase 75 Total Protein 6.5 Albumin 3.9 RPR Titer 07/22/19 07/22/19 07:40 07:50 WBC 4.2 RBC 4.33 Hgb 12.5 Hct 38.1 MCV 88.1 MCH 28.9 MCHC 32.8 RDW 14.7 Plt Count 129 L MPV 7.9 Sodium Potassium Chloride Carbon Dioxide Anion Gap BUN Creatinine Est GFR (CKD-EPI)AfAm Est GFR (CKD-EPI)NonAf POC Glucometer Random Glucose Calcium Total Bilirubin AST ALT Alkaline Phosphatase Total Protein Albumin RPR Titer Nonreactive Labs reviewed: plt 129 (low), total bilirubin 1.8, AST 44 (mildly elevated) Assessment: 07/22/19 15:55 Withdrawal sxs Noted with thrombocytopenia, elevated LFTs (AST, total bilirubin) Plan: Continue detox Encouraged PO water hydration Thrombocytopenia: most likely r/t chronic alcoholism Elevated LFTs: repeat AST and total bilirubin, check HCV Ab
[2019-07-22] MEDS: PHENYLEPHRINE HCL/COCOA BUTTER SUPPOSITORY RC SCH ×2 (16:18→22:46)
[2019-07-22] MEDS: ATORVASTATIN CA 40 MG TABLET (FP) PO SCH (22:46)
[2019-07-22] MEDS: THIAMINE HCL 100 MG TABLET (FP) PO SCH (22:46)
[2019-07-23] MEDS ORDERED: chlordiazePOXIDE HCL 25 MG CAPSULE PO SCH (05:00)
[2019-07-23] MEDS: IBUPROFEN 600 MG TABLET (FP) PO SCH (06:40)
[2019-07-23] MEDS: METHOCARBAMOL 500 MG TABLET PO PRN (06:42)
[2019-07-23] MEDS: metFORMIN HCL 500 MG TABLET (FP) PO SCH (06:44)
[2019-07-23 07:40] VITALS: BP 99/65; PULSE 72; TEMP 97.7
[2019-07-23 09:51] LABS: BILIRUBIN,TOTAL 0.8 mg/dL (0.2-1)
--- NOTE | 2019-07-23 10:53 | PN ---
S Progress Note Note: pt requesting to leave because he has things to do. pt was told of relapse, seizures, dt, overdose and or loss., pt chose to sign out ama
--- NOTE | 2019-07-23 10:54 | DS ---
[facility] Detox Discharge Summary Admission Date: 07/21/19 - History Present History: Alcohol Dependence - Physical Exam Results Vital Signs: Vital Signs Temperature 97.7 F 07/23/19 07:40 Pulse Rate 72 07/23/19 07:40 Respiratory Rate 18 07/23/19 07:40 Blood Pressure 99/65 07/23/19 07:40 O2 Sat by Pulse Oximetry (%) - Treatment Hospital Course: Rehab Referral Accepted - Medication Discharge Medications: Ambulatory Orders Aspirin [ASA -] 81 mg PO DAILY 02/23/19 Colchicine [Colcrys] 0.6 mg PO DAILY 02/23/19 Ibuprofen 600 mg PO PRN 02/23/19 Metoprolol Tartrate [Lopressor -] 50 mg PO DAILY 30 Days #30 tablet 05/26/19 Albuterol Sulfate Inhaler - [Ventolin HFA Inhaler -] 2 inh PO PRN PRN #1 inhaler 05/27/19 Budesonide/Formeterol Fumarate [SYMBICORT 160/4.5mcg -] 2 puff IH BID #1 inhaler 05/27/19 Lisinopril [Prinivil -] 40 mg PO DAILY #30 tablet 05/27/19 Metformin HCl [Glucophage] 1,000 mg PO BID #60 tablet 05/27/19 Atorvastatin Calcium 40 mg PO HS 07/21/19 Folic Acid 1 mg PO DAILY 07/21/19 Mirtazapine [Remeron -] 15 mg PO DAILY 07/21/19 Multivitamins [Tab-A-Vit -] 1 tab PO DAILY 07/21/19 Omeprazole 40 mg PO DAILY 07/21/19 Prednisone [Deltasone] 30 mg PO PRN PRN 07/21/19 Thiamine HCl [B-1] 100 mg PO DAILY 07/21/19 traZODone HCL [Desyrel -] 100 mg PO HS 07/21/19 - Diagnosis (1) Arthritis of right knee Current Visit: Yes Status: Acute (2) Use of cane as ambulatory aid Current Visit: Yes Status: Acute (3) Alcohol dependence Current Visit: No Status: Acute (4) Alcohol dependence with uncomplicated withdrawal Current Visit: No Status: Acute (5) Alcohol-induced sleep disorder Current Visit: No Status: Acute (6) Cellulitis of left thigh Current Visit: No Status: Acute (7) Diarrhea Current Visit: No Status: Acute (8) Hemorrhoid Current Visit: No Status: Acute Qualifiers: Hemorrhoid type: unspecified Qualified Code(s): K64.9 - Unspecified hemorrhoids (9) Hypercholesterolemia Current Visit: No Status: Acute (10) Syncope Current Visit: No Status: Acute Qualifiers: Syncope type: unspecified Qualified Code(s): R55 - Syncope and collapse (11) Asthma Current Visit: No Status: Chronic Qualifiers: Asthma severity: mild Asthma persistence: intermittent Asthma complication type: uncomplicated Qualified Code(s): J45.20 - Mild intermittent asthma, uncomplicated (12) GERD (gastroesophageal reflux disease) Current Visit: No Status: Chronic Qualifiers: Esophagitis presence: without esophagitis Qualified Code(s): K21.9 - Gastro -esophageal reflux disease without esophagitis (13) Gout Current Visit: No Status: Chronic Qualifiers: Gout site: unspecified site Gout etiology: unspecified cause Chronicity: chronic Presence of tophus: without tophus Qualified Code(s): M1A.9XX0 - Chronic gout, unspecified, without tophus (tophi) (14) Hypertension Current Visit: No Status: Chronic Qualifiers: Hypertension type: essential hypertension Qualified Code(s): I10 - Essential (primary) hypertension (15) Type 2 diabetes mellitus Current Visit: No Status: Chronic Qualifiers: Diabetes mellitus buttermaker continuous churn insulin use: without buttermaker continuous churn use Diabetes mellitus complication status: with other specified complication Qualified Code (s): E11.69 - Type 2 diabetes mellitus with other specified complication - AMA Did Patient Leave Against Medical Advice: Yes
[2019-07-24] MEDS ORDERED: chlordiazePOXIDE HCL 10 MG CAPSULE PO PRN
[2019-07-24] MEDS ORDERED: chlordiazePOXIDE HCL 10 MG CAPSULE PO SCH (05:00)
[2019-07-25] MEDS ORDERED: chlordiazePOXIDE HCL 10 MG CAPSULE PO SCH (05:00)
[2019-07-26] MEDS ORDERED: chlordiazePOXIDE HCL 10 MG CAPSULE PO ONE (05:00)
== END 2019-07-23 09:15 | disposition left against medical advice (07) | DRG 894 ==
LOC: YASAS 09:32 → Y6N 12:33
PROVIDERS: ADMIT Allergy & Immunology; ATTEND Allergy & Immunology
PROC: HZ2ZZZZ Detoxification Services for Substance Abuse Treatment (ICD-10-PCS; principal; 2019-07-21)
DX: F10.230 Alcohol dependence with withdrawal, uncomplicated (principal); L03.116 Cellulitis of left lower limb; I10 Essential (primary) hypertension; J45.20 Mild intermittent asthma, uncomplicated; E78.00 Pure hypercholesterolemia, unspecified; E11.9 Type 2 diabetes mellitus without complications; Z79.84 Long term (current) use of oral hypoglycemic drugs; R19.7 Diarrhea, unspecified; K21.9 Gastro-esophageal reflux disease without esophagitis; K64.9 Unspecified hemorrhoids; M1A.9XX0 Chronic gout, unspecified, without tophus (tophi); M17.11 Unilateral primary osteoarthritis, right knee; Z99.89 Dependence on other enabling machines and devices; Z91.013 Allergy to seafood; Z91.19 Patient's noncompliance with other medical treatment and regimen
CPT/HCPCS: 36415; 80053; 82247; 82962; 84450; 85027; 86593; 86803

== ENCOUNTER 2021-01-14 18:23 | Emergency (ER) | payer OTHER ==
[2021-01-14 18:49] VITALS: PULSE 95; BMI 30.9
[2021-01-14] MEDS ORDERED: FAMOTIDINE 20 MG/50 ML IVPB 20 MG/50 ML MG IVPB ONE ×2 (19:33→20:20)
[2021-01-14 20:41] LABS: BASO % 0.5 % (0-2.0); EOS % 2.4 % (0-4.5); HEMATOCRIT 34.3 % (35.4-49); HEMOGLOBIN 11.4 GM/dL (11.7-16.9); LYMPH % 37.9 % (8-40); MCH 29.5 pg (25.7-33.7); MCHC 33.3 g/dl (32.0-35.9); MEAN CELL VOLUME 88.6 fl (80-96); MEAN PLT VOLUME 7.3 fl (7.5-11.1); MONO % 5.7 % (3.8-10.2); NEUT % 53.5 % (42.8-82.8); PLATELET COUNT 115 K/MM3 (134-434); RBC 3.87 M/mm3 (4.00-5.60); RDW 15.8 % (11.9-15.9); WHITE BLOOD COUNT 4.3 K/mm3 (4.0-10.0)
[2021-01-14 20:59] LABS: CHLORIDE 108 mmol/L (98-107); SODIUM 142 mmol/L (136-145)
[2021-01-14 21:01] LABS: CALCIUM 7.8 mg/dL (8.5-10.1)
[2021-01-14 21:02] LABS: ALBUMIN 3.4 g/dl (3.4-5.0); ANION GAP 11 MMOL/L (8-16); BLOOD UREA NITROGEN 7.7 mg/dL (7-18); CO2 23 mmol/L (21-32); GLUCOSE,RANDOM 82 mg/dL (74-106); MAGNESIUM 1.4 mg/dL (1.8-2.4)
[2021-01-14 21:05] LABS: CREATININE 0.8 mg/dL (0.55-1.3); SGOT/AST 43 U/L (15-37); SGPT/ALT 28 U/L (13-61)
[2021-01-14 21:06] LABS: BILIRUBIN,TOTAL 0.3 mg/dL (0.2-1); TOT PROT 6.3 g/dl (6.4-8.2)
[2021-01-14 21:08] LABS: ALK PHOS 62 U/L (45-117)
[2021-01-14] MEDS ORDERED: MAGNESIUM SULF 50% (8.12 MEQ/2 ML-1 GM VIAL) IVPB ONE ×2 (21:10→21:14)
[2021-01-14] MEDS ORDERED: MAGNESIUM SULFATE IN WATER 2 GM/50 ML IVPB IVPB ONE ×2 (22:07→22:34)
[2021-01-14 22:55] LABS: PH,URINE 5.5 (5.0-8.0); URINE APPEARANCE CLEAR; URINE BILIRUBIN NEGATIVE (NEGATIVE); URINE COLOR YELLOW; URINE GLUCOSE (UA) NEGATIVE (NEGATIVE); URINE KETONE NEGATIVE (NEGATIVE); URINE LEUK ESTERASE NEGATIVE (NEGATIVE); URINE NITRITE NEGATIVE (NEGATIVE); URINE PROTEIN NEGATIVE (NEGATIVE); URINE UROBILINOGEN 0.2 mg/dL (0.2-1.0)
[2021-01-15 06:11] VITALS: BP 116/71; TEMP 98
== END 2021-01-15 06:53 | disposition home or self-care (01) ==
LOC: JER 18:23
PROC: 3E033GC Introduction of Other Therapeutic Substance into Peripheral Vein, Percutaneous Approach (ICD-10-PCS; principal; 2021-01-14)
PROC: 3E033GC Introduction of Other Therapeutic Substance into Peripheral Vein, Percutaneous Approach (ICD-10-PCS; 2021-01-14)
DX: F10.29 Alcohol dependence with unspecified alcohol-induced disorder (principal); F10.920 Alcohol use, unspecified with intoxication, uncomplicated
CPT/HCPCS: 36415; 70450-TC; 71045-TC-FY; 72125-TC; 80053; 81003; 82962; 83735; 84484; 85025; 86780; 87086; 93005; 93010; 96374; 96375; 99285-25

== ENCOUNTER 2021-01-15 08:29 | Inpatient (IN) | payer OTHER ==
[2021-01-15 10:52] VITALS: BMI 31.6
[2021-01-15] MEDS ORDERED: ALBUTEROL SO4 HFA INHALER IH PRN (11:38)
[2021-01-15] MEDS ORDERED: MAGNESIUM CITRATE 300 ML BOTTLE PO PRN (11:41)
[2021-01-15] MEDS ORDERED: METHOCARBAMOL 500 MG TABLET PO PRN (11:41)
[2021-01-15] MEDS ORDERED: NICOTINE POLACRILEX 2 MG GUM BUC PRN (11:41)
[2021-01-15] MEDS ORDERED: MAG HYDROX/AL HYDROX/SIMETH 30 ML UNIT-DOSE CUP PO PRN (11:41)
[2021-01-15] MEDS ORDERED: chlordiazePOXIDE HCL 25 MG CAPSULE PO PRN (11:41)
[2021-01-15] MEDS ORDERED: ACETAMINOPHEN 325 MG TABLET (FP) PO PRN (11:41)
[2021-01-15] MEDS ORDERED: MENTHOL/PHENOL 1 EACH UD MM PRN (11:41)
[2021-01-15] MEDS ORDERED: BISMUTH SUBSALICYLATE 262 MG/15 ML BTL PO PRN (11:41)
[2021-01-15] MEDS ORDERED: ONDANSETRON *ODT* 4 MG TABLET SL PRN (11:41)
[2021-01-15] MEDS: hydrOXYzine PAMOATE 25 MG CAPSULE (FP) PO SCH ×3 (14:46→22:38)
[2021-01-15] MEDS: ASPIRIN 81 MG CHEWABLE TABLETS PO SCH (14:46)
[2021-01-15] MEDS: LISINOPRIL 20 MG TABLET PO SCH (14:46)
[2021-01-15] MEDS: PANTOPRAZOLE 40 MG TABLET PO SCH (14:46)
[2021-01-15] MEDS: METOPROLOL TARTRATE 50 MG TABLET (FP) PO SCH (14:46)
[2021-01-15] MEDS: COLCHICINE 0.6 MG TAB PO SCH (14:47)
[2021-01-15] MEDS: PRENATAL VITAMINS W/ FOLIC ACID TABLET (FP) PO SCH (14:47)
[2021-01-15] MEDS: NICOTINE 21 MG/24 HOURS TOPICAL PATCH TD SCH (14:53)
[2021-01-15] MEDS: BUDESONIDE/FORMETEROL FUMARATE 160/4.5 mcg INHALER IH SCH ×2 (14:54→23:41)
[2021-01-15] MEDS: chlordiazePOXIDE HCL 25 MG CAPSULE PO SCH ×2 (17:59→22:38)
[2021-01-15] MEDS: metFORMIN HCL 500 MG TABLET (FP) PO SCH (18:00)
[2021-01-15] MEDS: IBUPROFEN 400 MG TABLET (FP) PO PRN (18:04)
[2021-01-15] MEDS: ATORVASTATIN CA 40 MG TABLET (FP) PO SCH (22:38)
[2021-01-15] MEDS: THIAMINE HCL 100 MG TABLET (FP) PO SCH (22:38)
[2021-01-15] MEDS: MELATONIN 5 MG TABLETS PO SCH (22:39)
[2021-01-15] MEDS: ACETAMINOPHEN 325 MG TABLET (FP) PO PRN (22:41)
[2021-01-16] MEDS: hydrOXYzine PAMOATE 25 MG CAPSULE (FP) PO SCH ×5 (06:00→22:14)
[2021-01-16] MEDS: chlordiazePOXIDE HCL 25 MG CAPSULE PO SCH ×4 (06:00→23:09)
[2021-01-16] MEDS: IBUPROFEN 400 MG TABLET (FP) PO PRN (06:01)
[2021-01-16] MEDS: LISINOPRIL 20 MG TABLET PO SCH (10:37)
[2021-01-16] MEDS: PRENATAL VITAMINS W/ FOLIC ACID TABLET (FP) PO SCH (10:37)
[2021-01-16] MEDS: ASPIRIN 81 MG CHEWABLE TABLETS PO SCH (10:38)
[2021-01-16] MEDS: COLCHICINE 0.6 MG TAB PO SCH (10:39)
[2021-01-16] MEDS: PANTOPRAZOLE 40 MG TABLET PO SCH (10:39)
[2021-01-16] MEDS: METOPROLOL TARTRATE 50 MG TABLET (FP) PO SCH (10:39)
[2021-01-16] MEDS: NICOTINE 21 MG/24 HOURS TOPICAL PATCH TD SCH (10:40)
[2021-01-16] MEDS: BUDESONIDE/FORMETEROL FUMARATE 160/4.5 mcg INHALER IH SCH ×2 (10:40→22:14)
[2021-01-16] MEDS: metFORMIN HCL 500 MG TABLET (FP) PO SCH ×2 (17:07→17:37)
[2021-01-16] MEDS: MAGNESIUM HYDROX 2400MG/30ML ORAL SUSPENSION 30 ML CUP PO PRN (18:57)
[2021-01-16] MEDS: traZODone HCL 100 MG TABLET (FP) PO SCH (22:12)
[2021-01-16] MEDS: ATORVASTATIN CA 40 MG TABLET (FP) PO SCH (22:12)
[2021-01-16] MEDS: THIAMINE HCL 100 MG TABLET (FP) PO SCH (22:13)
[2021-01-16] MEDS: MELATONIN 5 MG TABLETS PO SCH (23:08)
[2021-01-17] MEDS: MAGNESIUM HYDROX 2400MG/30ML ORAL SUSPENSION 30 ML CUP PO PRN (01:14)
[2021-01-17] MEDS: hydrOXYzine PAMOATE 25 MG CAPSULE (FP) PO SCH ×5 (05:26→22:13)
[2021-01-17] MEDS: IBUPROFEN 400 MG TABLET (FP) PO PRN ×2 (05:27→15:03)
[2021-01-17] MEDS: chlordiazePOXIDE HCL 25 MG CAPSULE PO SCH ×4 (05:27→22:13)
[2021-01-17] MEDS: metFORMIN HCL 500 MG TABLET (FP) PO SCH ×2 (06:14→18:04)
[2021-01-17] MEDS: ASPIRIN 81 MG CHEWABLE TABLETS PO SCH (10:40)
[2021-01-17] MEDS: PRENATAL VITAMINS W/ FOLIC ACID TABLET (FP) PO SCH (10:40)
[2021-01-17] MEDS: NICOTINE 21 MG/24 HOURS TOPICAL PATCH TD SCH (10:41)
[2021-01-17] MEDS: LISINOPRIL 20 MG TABLET PO SCH (10:41)
[2021-01-17] MEDS: COLCHICINE 0.6 MG TAB PO SCH (10:41)
[2021-01-17] MEDS: METOPROLOL TARTRATE 50 MG TABLET (FP) PO SCH (10:41)
[2021-01-17] MEDS: PANTOPRAZOLE 40 MG TABLET PO SCH (10:41)
[2021-01-17] MEDS: BUDESONIDE/FORMETEROL FUMARATE 160/4.5 mcg INHALER IH SCH ×2 (10:42→22:48)
[2021-01-17] MEDS: THIAMINE HCL 100 MG TABLET (FP) PO SCH (22:12)
[2021-01-17] MEDS: MELATONIN 5 MG TABLETS PO SCH (22:12)
[2021-01-17] MEDS: ATORVASTATIN CA 40 MG TABLET (FP) PO SCH (22:13)
[2021-01-17] MEDS: traZODone HCL 100 MG TABLET (FP) PO SCH (22:13)
[2021-01-18] MEDS ORDERED: chlordiazePOXIDE HCL 10 MG CAPSULE PO PRN
[2021-01-18] MEDS: chlordiazePOXIDE HCL 10 MG CAPSULE PO SCH ×4 (06:13→22:24)
[2021-01-18] MEDS: metFORMIN HCL 500 MG TABLET (FP) PO SCH ×2 (06:14→17:33)
[2021-01-18] MEDS: IBUPROFEN 400 MG TABLET (FP) PO PRN ×2 (06:15→17:34)
[2021-01-18] MEDS: hydrOXYzine PAMOATE 25 MG CAPSULE (FP) PO SCH ×5 (06:46→22:24)
[2021-01-18] MEDS: LISINOPRIL 20 MG TABLET PO SCH (10:33)
[2021-01-18] MEDS: METOPROLOL TARTRATE 50 MG TABLET (FP) PO SCH (10:33)
[2021-01-18] MEDS: COLCHICINE 0.6 MG TAB PO SCH (10:34)
[2021-01-18] MEDS: PANTOPRAZOLE 40 MG TABLET PO SCH (10:34)
[2021-01-18] MEDS: ASPIRIN 81 MG CHEWABLE TABLETS PO SCH (10:34)
[2021-01-18] MEDS: NICOTINE 21 MG/24 HOURS TOPICAL PATCH TD SCH (10:34)
[2021-01-18] MEDS: PRENATAL VITAMINS W/ FOLIC ACID TABLET (FP) PO SCH (10:34)
[2021-01-18] MEDS: BUDESONIDE/FORMETEROL FUMARATE 160/4.5 mcg INHALER IH SCH ×2 (10:37→21:50)
[2021-01-18] MEDS ORDERED: INSULIN (NOVOLOG) ASPART 100 UNITS/ML 10ML VIAL ONE (11:10)
[2021-01-18] MEDS: MELATONIN 5 MG TABLETS PO SCH (21:51)
[2021-01-18] MEDS: traZODone HCL 100 MG TABLET (FP) PO SCH (21:51)
[2021-01-18] MEDS: ATORVASTATIN CA 40 MG TABLET (FP) PO SCH (21:51)
[2021-01-18] MEDS: THIAMINE HCL 100 MG TABLET (FP) PO SCH (22:24)
[2021-01-19 06:05] LABS: SARS-CoV-2 NAA Not Detected (Not Detected)
[2021-01-19] MEDS: hydrOXYzine PAMOATE 25 MG CAPSULE (FP) PO SCH ×5 (06:21→22:22)
[2021-01-19] MEDS: metFORMIN HCL 500 MG TABLET (FP) PO SCH ×2 (06:21→17:00)
[2021-01-19] MEDS: chlordiazePOXIDE HCL 10 MG CAPSULE PO SCH ×2 (06:22→17:01)
[2021-01-19] MEDS: LISINOPRIL 20 MG TABLET PO SCH (10:13)
[2021-01-19] MEDS: COLCHICINE 0.6 MG TAB PO SCH (10:13)
[2021-01-19] MEDS: ASPIRIN 81 MG CHEWABLE TABLETS PO SCH (10:13)
[2021-01-19] MEDS: METOPROLOL TARTRATE 50 MG TABLET (FP) PO SCH (10:13)
[2021-01-19] MEDS: PRENATAL VITAMINS W/ FOLIC ACID TABLET (FP) PO SCH (10:13)
[2021-01-19] MEDS: NICOTINE 21 MG/24 HOURS TOPICAL PATCH TD SCH (10:14)
[2021-01-19] MEDS: PANTOPRAZOLE 40 MG TABLET PO SCH (10:14)
[2021-01-19] MEDS: ACETAMINOPHEN 325 MG TABLET (FP) PO PRN (10:15)
[2021-01-19] MEDS: BUDESONIDE/FORMETEROL FUMARATE 160/4.5 mcg INHALER IH SCH ×2 (10:16→22:27)
[2021-01-19] MEDS: CLOTRIMAZOLE 1% CREAM 15 GM TUBE TP SCH ×2 (11:44→22:22)
[2021-01-19] MEDS ORDERED: ARTIFICIAL TEARS (POLYVINYL ALCOHOL) OPTH DROPS OU SCH (12:00)
[2021-01-19] MEDS: ARTIFICIAL TEARS (POLYVINYL ALCOHOL) OPTH DROPS OU SCH (15:18)
[2021-01-19] MEDS: ATORVASTATIN CA 40 MG TABLET (FP) PO SCH (22:21)
[2021-01-19] MEDS: THIAMINE HCL 100 MG TABLET (FP) PO SCH (22:22)
[2021-01-19] MEDS: traZODone HCL 100 MG TABLET (FP) PO SCH (22:22)
[2021-01-19] MEDS: MELATONIN 5 MG TABLETS PO SCH (22:22)
[2021-01-20] MEDS: ARTIFICIAL TEARS (POLYVINYL ALCOHOL) OPTH DROPS OU SCH ×3 (00:24→05:27)
[2021-01-20] MEDS ORDERED: chlordiazePOXIDE HCL 10 MG CAPSULE PO ONE (05:00)
[2021-01-20] MEDS: hydrOXYzine PAMOATE 25 MG CAPSULE (FP) PO SCH ×2 (05:25→10:29)
[2021-01-20] MEDS: ACETAMINOPHEN 325 MG TABLET (FP) PO PRN (05:27)
[2021-01-20 09:15] VITALS: BP 147/85; PULSE 70; TEMP 97.7
[2021-01-20] MEDS: PANTOPRAZOLE 40 MG TABLET PO SCH (10:29)
[2021-01-20] MEDS: COLCHICINE 0.6 MG TAB PO SCH (10:29)
[2021-01-20] MEDS: METOPROLOL TARTRATE 50 MG TABLET (FP) PO SCH (10:29)
[2021-01-20] MEDS: LISINOPRIL 20 MG TABLET PO SCH (10:29)
[2021-01-20] MEDS: PRENATAL VITAMINS W/ FOLIC ACID TABLET (FP) PO SCH (10:29)
[2021-01-20] MEDS: ASPIRIN 81 MG CHEWABLE TABLETS PO SCH (10:29)
[2021-01-20] MEDS: NICOTINE 21 MG/24 HOURS TOPICAL PATCH TD SCH (10:29)
[2021-01-20] MEDS: CLOTRIMAZOLE 1% CREAM 15 GM TUBE TP SCH (10:30)
[2021-01-20] MEDS: BUDESONIDE/FORMETEROL FUMARATE 160/4.5 mcg INHALER IH SCH (10:30)
[2021-01-20] MEDS: IBUPROFEN 400 MG TABLET (FP) PO PRN (10:31)
== END 2021-01-20 11:52 | disposition home or self-care (01) | DRG 897 ==
LOC: YASAS 08:29 → Y6N 12:26
PROVIDERS: ADMIT Allergy & Immunology; ATTEND Allergy & Immunology
PROC: HZ2ZZZZ Detoxification Services for Substance Abuse Treatment (ICD-10-PCS; principal; 2021-01-15)
DX: F10.230 Alcohol dependence with withdrawal, uncomplicated (principal); F17.210 Nicotine dependence, cigarettes, uncomplicated; F10.282 Alcohol dependence with alcohol-induced sleep disorder; F19.24 Other psychoactive substance dependence with psychoactive substance-induced mood disorder; I10 Essential (primary) hypertension; E11.9 Type 2 diabetes mellitus without complications; Z79.84 Long term (current) use of oral hypoglycemic drugs; K21.9 Gastro-esophageal reflux disease without esophagitis; J45.20 Mild intermittent asthma, uncomplicated; M1A.9XX0 Chronic gout, unspecified, without tophus (tophi); H04.123 Dry eye syndrome of bilateral lacrimal glands; R30.0 Dysuria; R26.89 Other abnormalities of gait and mobility; Z99.89 Dependence on other enabling machines and devices; Z91.013 Allergy to seafood
CPT/HCPCS: 82962; C9803; U0003; U0005

== ENCOUNTER 2022-02-22 15:58 | Inpatient (IN) | payer OTHER ==
[2022-02-22] MEDS ORDERED: LORazepam 2 MG TABLET PO ONE (17:06)
[2022-02-22] MEDS ORDERED: BENZOCAINE/MENTHOL (CHLORASEPTIC ) LOZENGE MM PRN (17:06)
[2022-02-22] MEDS ORDERED: LOPERAMIDE HCL 2 MG CAPSULE PO PRN (17:06)
[2022-02-22] MEDS ORDERED: LORazepam 1 MG TABLET PO PRN (17:06)
[2022-02-22] MEDS ORDERED: DICYCLOMINE HCL 10 MG CAPSULE PO PRN (17:06)
[2022-02-22] MEDS ORDERED: BISMUTH SUBSALICYLATE 524 MG/30 ML PO PRN (17:06)
[2022-02-22] MEDS ORDERED: ACETAMINOPHEN 325 MG TABLET (FP) PO PRN (17:06)
[2022-02-22] MEDS ORDERED: ONDANSETRON *ODT* 4 MG TABLET SL PRN (17:06)
[2022-02-22] MEDS ORDERED: MAGNESIUM CITRATE 300 ML BOTTLE PO PRN (17:06)
[2022-02-22] MEDS ORDERED: NICOTINE 10 MG CARTRIDGE (INHALER) IH PRN (17:06)
[2022-02-22] MEDS ORDERED: MAGNESIUM HYDROX 2400MG/30ML ORAL SUSPENSION 30 ML CUP PO PRN (17:06)
[2022-02-22] MEDS ORDERED: ALBUTEROL SO4 HFA INHALER IH PRN (17:08)
[2022-02-22 18:58] VITALS: BMI 29.4
[2022-02-22] MEDS: LORazepam 2 MG TABLET PO SCH ×2 (20:19→22:22)
[2022-02-22] MEDS: hydrOXYzine PAMOATE 25 MG CAPSULE (FP) PO SCH ×2 (20:21→22:22)
[2022-02-22] MEDS: LIDOCAINE 5% TOPICAL PATCH TP SCH (20:37)
[2022-02-22] MEDS: BUDESONIDE/FORMETEROL FUMARATE 160/4.5 mcg INHALER IH SCH (22:21)
[2022-02-22] MEDS: THIAMINE HCL 100 MG TABLET (FP) PO SCH (22:22)
[2022-02-22] MEDS: ATORVASTATIN CA 40 MG TABLET (FP) PO SCH (22:22)
[2022-02-22] MEDS: MELATONIN 5 MG TABLETS PO SCH (22:22)
[2022-02-22] MEDS: FAMOTIDINE 20 MG TABLET PO SCH (22:22)
[2022-02-22] MEDS: LIDOCAINE PATCH REMOVAL MC SCH (22:25)
[2022-02-23] MEDS: hydrOXYzine PAMOATE 25 MG CAPSULE (FP) PO SCH ×5 (05:54→22:28)
[2022-02-23] MEDS: LORazepam 2 MG TABLET PO SCH ×4 (05:55→22:28)
[2022-02-23] MEDS: metFORMIN HCL 500 MG TABLET (FP) PO SCH ×2 (06:27→17:59)
[2022-02-23 09:50] LABS: HEMATOCRIT 32.4 % (35.4-49); HEMOGLOBIN 10.7 GM/dL (11.7-16.9); MCH 28.8 pg (25.7-33.7); MEAN CELL VOLUME 87.1 fl (80-96); MEAN PLT VOLUME 7.4 fl (7.5-11.1); PLATELET COUNT 65 10^3/uL (134-434); RBC 3.72 M/mm3 (4.00-5.60); RDW 16.7 % (11.9-15.9); WHITE BLOOD COUNT 3.2 K/mm3 (4.0-10.0)
[2022-02-23 09:56] LABS: CALCIUM 8.4 mg/dL (8.5-10.1)
[2022-02-23 09:57] LABS: ALBUMIN 3.4 g/dl (3.4-5.0); BLOOD UREA NITROGEN 14.4 mg/dL (7-18)
[2022-02-23 10:01] LABS: BILIRUBIN,TOTAL 0.8 mg/dL (0.2-1); TOT PROT 6.4 g/dl (6.4-8.2)
[2022-02-23] MEDS: BUDESONIDE/FORMETEROL FUMARATE 160/4.5 mcg INHALER IH SCH ×2 (10:29→22:28)
[2022-02-23] MEDS: PRENATAL VITAMINS W/ FOLIC ACID TABLET (FP) PO SCH (10:30)
[2022-02-23] MEDS: ASPIRIN 81 MG CHEWABLE TABLETS PO SCH (10:30)
[2022-02-23] MEDS: FAMOTIDINE 20 MG TABLET PO SCH ×2 (10:30→22:28)
[2022-02-23] MEDS: LIDOCAINE 5% TOPICAL PATCH TP SCH (10:31)
[2022-02-23] MEDS ORDERED: IBUPROFEN 600 MG TABLET (FP) PO ONE (10:44)
[2022-02-23] MEDS: LOSARTAN POTASSIUM 50 MG TABLET PO SCH (10:48)
[2022-02-23] MEDS: ACETAMINOPHEN 325 MG TABLET (FP) PO PRN (18:00)
[2022-02-23] MEDS: THIAMINE HCL 100 MG TABLET (FP) PO SCH (22:28)
[2022-02-23] MEDS: ATORVASTATIN CA 40 MG TABLET (FP) PO SCH (22:28)
[2022-02-23] MEDS: LIDOCAINE PATCH REMOVAL MC SCH (22:29)
[2022-02-23] MEDS: MELATONIN 5 MG TABLETS PO SCH (22:29)
[2022-02-24] MEDS: hydrOXYzine PAMOATE 25 MG CAPSULE (FP) PO SCH ×5 (05:15→22:04)
[2022-02-24] MEDS: LORazepam 1 MG TABLET PO SCH ×4 (05:15→22:06)
[2022-02-24] MEDS: ACETAMINOPHEN 325 MG TABLET (FP) PO PRN ×3 (05:18→22:05)
[2022-02-24] MEDS: metFORMIN HCL 500 MG TABLET (FP) PO SCH ×2 (07:32→17:34)
[2022-02-24] MEDS: LIDOCAINE 5% TOPICAL PATCH TP SCH (10:08)
[2022-02-24] MEDS: METHOCARBAMOL 500 MG TABLET PO PRN (10:08)
[2022-02-24] MEDS: ASPIRIN 81 MG CHEWABLE TABLETS PO SCH (10:09)
[2022-02-24] MEDS: LOSARTAN POTASSIUM 50 MG TABLET PO SCH (10:09)
[2022-02-24] MEDS: FAMOTIDINE 20 MG TABLET PO SCH ×2 (10:09→22:03)
[2022-02-24] MEDS: PRENATAL VITAMINS W/ FOLIC ACID TABLET (FP) PO SCH (10:09)
[2022-02-24] MEDS: BUDESONIDE/FORMETEROL FUMARATE 160/4.5 mcg INHALER IH SCH ×2 (10:09→22:04)
[2022-02-24] MEDS: MAG HYDROX/AL HYDROX/SIMETH 30 ML UNIT-DOSE CUP PO PRN (17:38)
[2022-02-24] MEDS: LIDOCAINE PATCH REMOVAL MC SCH (22:01)
[2022-02-24] MEDS: ATORVASTATIN CA 40 MG TABLET (FP) PO SCH (22:03)
[2022-02-24] MEDS: THIAMINE HCL 100 MG TABLET (FP) PO SCH (22:03)
[2022-02-24] MEDS: MELATONIN 5 MG TABLETS PO SCH (22:04)
[2022-02-25] MEDS ORDERED: LORazepam 0.5 MG TABLET PO PRN
[2022-02-25] MEDS: LORazepam 0.5 MG TABLET PO SCH ×4 (05:27→22:11)
[2022-02-25] MEDS: hydrOXYzine PAMOATE 25 MG CAPSULE (FP) PO SCH ×5 (05:27→22:11)
[2022-02-25] MEDS: ACETAMINOPHEN 325 MG TABLET (FP) PO PRN ×3 (05:28→17:24)
[2022-02-25] MEDS: LIDOCAINE 5% TOPICAL PATCH TP SCH (10:12)
[2022-02-25] MEDS: metFORMIN HCL 500 MG TABLET (FP) PO SCH ×2 (10:13→17:23)
[2022-02-25] MEDS: PRENATAL VITAMINS W/ FOLIC ACID TABLET (FP) PO SCH (10:13)
[2022-02-25] MEDS: ASPIRIN 81 MG CHEWABLE TABLETS PO SCH (10:13)
[2022-02-25] MEDS: FAMOTIDINE 20 MG TABLET PO SCH ×2 (10:13→22:12)
[2022-02-25] MEDS: METHOCARBAMOL 500 MG TABLET PO PRN (10:13)
[2022-02-25] MEDS: BUDESONIDE/FORMETEROL FUMARATE 160/4.5 mcg INHALER IH SCH ×3 (10:15→23:31)
[2022-02-25] MEDS ORDERED: predniSONE 10 MG TABLET (UD) PO ONE (11:14)
[2022-02-25] MEDS: LOSARTAN POTASSIUM 50 MG TABLET PO SCH (12:49)
[2022-02-25] MEDS: MAG HYDROX/AL HYDROX/SIMETH 30 ML UNIT-DOSE CUP PO PRN (19:34)
[2022-02-25] MEDS ORDERED: traZODone HCL 100 MG TABLET (FP) PO SCH (22:00)
[2022-02-25] MEDS: THIAMINE HCL 100 MG TABLET (FP) PO SCH (22:11)
[2022-02-25] MEDS: ATORVASTATIN CA 40 MG TABLET (FP) PO SCH (22:11)
[2022-02-25] MEDS: MELATONIN 5 MG TABLETS PO SCH (22:12)
[2022-02-25] MEDS: LIDOCAINE PATCH REMOVAL MC SCH (22:12)
[2022-02-26] MEDS ORDERED: LORazepam 0.5 MG TABLET PO ONE (05:00)
[2022-02-26] MEDS: hydrOXYzine PAMOATE 25 MG CAPSULE (FP) PO SCH (05:25)
[2022-02-26] MEDS ORDERED: predniSONE 20 MG TABLET (UD) PO ONE (06:00)
[2022-02-26] MEDS: metFORMIN HCL 500 MG TABLET (FP) PO SCH (06:07)
[2022-02-26 06:48] VITALS: BP 140/90; PULSE 68; TEMP 97.6
== END 2022-02-26 09:00 | disposition home or self-care (01) | DRG 897 ==
LOC: YASAS 15:58 → Y3N 17:24 → Y6N 18:36
PROVIDERS: ADMIT Allergy & Immunology; ATTEND Surgery
PROC: HZ2ZZZZ Detoxification Services for Substance Abuse Treatment (ICD-10-PCS; principal; 2022-02-22)
DX: F10.230 Alcohol dependence with withdrawal, uncomplicated (principal); F17.210 Nicotine dependence, cigarettes, uncomplicated; F10.280 Alcohol dependence with alcohol-induced anxiety disorder; F10.282 Alcohol dependence with alcohol-induced sleep disorder; F32.A Depression, unspecified; E78.5 Hyperlipidemia, unspecified; I10 Essential (primary) hypertension; E11.9 Type 2 diabetes mellitus without complications; Z79.84 Long term (current) use of oral hypoglycemic drugs; J45.20 Mild intermittent asthma, uncomplicated; K21.9 Gastro-esophageal reflux disease without esophagitis; M1A.9XX0 Chronic gout, unspecified, without tophus (tophi); Z62.810 Personal history of physical and sexual abuse in childhood; Z99.89 Dependence on other enabling machines and devices; Z91.013 Allergy to seafood
CPT/HCPCS: 36415; 80053; 82962; 85027; 86780; 93005; 93010; C9803-CS; U0003; U0005

== ENCOUNTER 2022-12-10 11:12 | Inpatient (IN) | payer OTHER ==
[2022-12-10 11:35] VITALS: BMI 34.4
[2022-12-10] MEDS ORDERED: ACETAMINOPHEN 325 MG TABLET (FP) PO PRN (11:59)
[2022-12-10] MEDS ORDERED: guaiFENesin 600 MG TABLET.ER (FP) PO PRN (11:59)
[2022-12-10] MEDS ORDERED: DICYCLOMINE HCL 10 MG CAPSULE PO PRN (11:59)
[2022-12-10] MEDS ORDERED: BENZONATATE 200 MG CAPSULE PO PRN (11:59)
[2022-12-10] MEDS ORDERED: NALOXONE HCL (KLOXXADO) 8 MG SPRAY NS PRN (11:59)
[2022-12-10] MEDS ORDERED: POLYETHYLENE GLYCOL (HEALTHYLAX) 3350 17 GM PACKET PO PRN (11:59)
[2022-12-10] MEDS ORDERED: LORazepam 1 MG TABLET PO PRN (11:59)
[2022-12-10] MEDS ORDERED: ONDANSETRON *ODT* 4 MG TABLET SL PRN (11:59)
[2022-12-10] MEDS ORDERED: BENZOCAINE/MENTHOL (CHLORASEPTIC ) LOZENGE MM PRN (11:59)
[2022-12-10] MEDS ORDERED: MAG HYDROX/AL HYDROX/SIMETH 30 ML UNIT-DOSE CUP PO PRN (11:59)
[2022-12-10] MEDS ORDERED: BISMUTH SUBSALICYLATE 524 MG/30 ML PO PRN (11:59)
[2022-12-10] MEDS ORDERED: LOPERAMIDE HCL 2 MG CAPSULE PO PRN (11:59)
[2022-12-10] MEDS ORDERED: NALOXONE HCL 0.4 MG/ML VIAL IM PRN (11:59)
[2022-12-10] MEDS ORDERED: IBUPROFEN 400 MG TABLET (FP) PO PRN (11:59)
[2022-12-10] MEDS ORDERED: NICOTINE 10 MG CARTRIDGE (INHALER) IH PRN (11:59)
[2022-12-10] MEDS ORDERED: ALBUTEROL SO4 HFA INHALER IH PRN (12:04)
[2022-12-10] MEDS ORDERED: LORazepam 2 MG TABLET PO ONE (12:30)
[2022-12-10] MEDS ORDERED: LORazepam 2 MG TABLET ONE (13:53)
[2022-12-10] MEDS ORDERED: PRENATAL VITAMINS W/ FOLIC ACID TABLET (FP) PO ONE (13:53)
[2022-12-10] MEDS: PRENATAL VITAMINS W/ FOLIC ACID TABLET (FP) PO SCH (14:02)
[2022-12-10 15:11] LABS: HEMATOCRIT 35.9 % (35.4-49); MCHC 33.5 g/dl (32.0-35.9); MEAN CELL VOLUME 89.5 fl (80-96); MEAN PLT VOLUME 8.1 fl (7.5-11.1); PLATELET COUNT 80 10^3/uL (134-434); RBC 4.01 M/mm3 (4.00-5.60); RDW 14.9 % (11.9-15.9); WHITE BLOOD COUNT 5.7 K/mm3 (4.0-10.0)
[2022-12-10 15:17] LABS: CALCIUM 9.1 mg/dL (8.5-10.1)
[2022-12-10 15:18] LABS: BLOOD UREA NITROGEN 18.8 mg/dL (7-18)
[2022-12-10 15:21] LABS: CREATININE 0.9 mg/dL (0.55-1.3)
[2022-12-10 15:22] LABS: TOT PROT 7.1 g/dl (6.4-8.2)
[2022-12-10] MEDS: metFORMIN HCL 500 MG TABLET (FP) PO SCH (17:25)
[2022-12-10] MEDS: LORazepam 2 MG TABLET PO SCH ×2 (17:26→22:21)
[2022-12-10] MEDS ORDERED: MELATONIN 5 MG TABLETS PO SCH (22:00)
[2022-12-10] MEDS: ATORVASTATIN CA 40 MG TABLET (FP) PO SCH (22:22)
[2022-12-10] MEDS: THIAMINE HCL 100 MG TABLET (FP) PO SCH (22:22)
[2022-12-10] MEDS: traZODone HCL 100 MG TABLET (FP) PO PRN (22:24)
[2022-12-10] MEDS: IBUPROFEN 600 MG TABLET (FP) PO PRN (22:24)
[2022-12-10] MEDS: BUDESONIDE/FORMETEROL FUMARATE 160/4.5 mcg INHALER IH SCH (22:36)
[2022-12-11] MEDS: LORazepam 2 MG TABLET PO SCH ×4 (05:53→22:15)
[2022-12-11] MEDS: metFORMIN HCL 500 MG TABLET (FP) PO SCH ×2 (07:00→17:34)
[2022-12-11] MEDS: PRENATAL VITAMINS W/ FOLIC ACID TABLET (FP) PO SCH (10:20)
[2022-12-11] MEDS: METHOCARBAMOL 500 MG TABLET PO PRN (10:20)
[2022-12-11] MEDS: hydrOXYzine PAMOATE 25 MG CAPSULE (FP) PO PRN (10:20)
[2022-12-11] MEDS: PANTOPRAZOLE 40 MG TABLET PO SCH (10:21)
[2022-12-11] MEDS: ASPIRIN 81 MG CHEWABLE TABLETS PO SCH (10:21)
[2022-12-11] MEDS: BUDESONIDE/FORMETEROL FUMARATE 160/4.5 mcg INHALER IH SCH ×2 (10:22→22:15)
[2022-12-11] MEDS: THIAMINE HCL 100 MG TABLET (FP) PO SCH (22:14)
[2022-12-11] MEDS: traZODone HCL 100 MG TABLET (FP) PO PRN (22:15)
[2022-12-11] MEDS: ATORVASTATIN CA 40 MG TABLET (FP) PO SCH (22:15)
[2022-12-12] MEDS: LORazepam 1 MG TABLET PO SCH ×4 (05:31→22:11)
[2022-12-12] MEDS: MAGNESIUM HYDROX 2400MG/30ML ORAL SUSPENSION 30 ML CUP PO PRN (05:32)
[2022-12-12] MEDS: IBUPROFEN 600 MG TABLET (FP) PO PRN ×2 (07:28→22:13)
[2022-12-12] MEDS: metFORMIN HCL 500 MG TABLET (FP) PO SCH ×2 (07:42→17:26)
[2022-12-12] MEDS: PRENATAL VITAMINS W/ FOLIC ACID TABLET (FP) PO SCH (10:37)
[2022-12-12] MEDS: METHOCARBAMOL 500 MG TABLET PO PRN (10:37)
[2022-12-12] MEDS: hydrOXYzine PAMOATE 25 MG CAPSULE (FP) PO PRN (10:37)
[2022-12-12] MEDS: PANTOPRAZOLE 40 MG TABLET PO SCH (10:37)
[2022-12-12] MEDS: ASPIRIN 81 MG CHEWABLE TABLETS PO SCH (10:37)
[2022-12-12] MEDS: BUDESONIDE/FORMETEROL FUMARATE 160/4.5 mcg INHALER IH SCH ×2 (10:38→22:10)
[2022-12-12] MEDS: THIAMINE HCL 100 MG TABLET (FP) PO SCH (22:11)
[2022-12-12] MEDS: ATORVASTATIN CA 40 MG TABLET (FP) PO SCH (22:11)
[2022-12-12] MEDS: traZODone HCL 100 MG TABLET (FP) PO PRN (22:11)
[2022-12-13] MEDS ORDERED: LORazepam 0.5 MG TABLET PO PRN
[2022-12-13] MEDS: LORazepam 0.5 MG TABLET PO SCH ×4 (06:00→22:11)
[2022-12-13] MEDS: metFORMIN HCL 500 MG TABLET (FP) PO SCH ×2 (06:00→17:25)
[2022-12-13] MEDS: MAGNESIUM HYDROX 2400MG/30ML ORAL SUSPENSION 30 ML CUP PO PRN (06:06)
[2022-12-13] MEDS: BUDESONIDE/FORMETEROL FUMARATE 160/4.5 mcg INHALER IH SCH ×2 (10:15→22:45)
[2022-12-13] MEDS: PANTOPRAZOLE 40 MG TABLET PO SCH (10:16)
[2022-12-13] MEDS: ASPIRIN 81 MG CHEWABLE TABLETS PO SCH (10:16)
[2022-12-13] MEDS: PRENATAL VITAMINS W/ FOLIC ACID TABLET (FP) PO SCH (10:16)
[2022-12-13] MEDS: THIAMINE HCL 100 MG TABLET (FP) PO SCH (22:11)
[2022-12-13] MEDS: ATORVASTATIN CA 40 MG TABLET (FP) PO SCH (22:11)
[2022-12-13] MEDS: traZODone HCL 100 MG TABLET (FP) PO PRN (22:13)
[2022-12-14] MEDS ORDERED: LORazepam 0.5 MG TABLET PO ONE (05:00)
[2022-12-14] MEDS: metFORMIN HCL 500 MG TABLET (FP) PO SCH (06:36)
[2022-12-14] MEDS: MAGNESIUM HYDROX 2400MG/30ML ORAL SUSPENSION 30 ML CUP PO PRN (06:39)
[2022-12-14] MEDS: ASPIRIN 81 MG CHEWABLE TABLETS PO SCH (09:24)
[2022-12-14] MEDS: PANTOPRAZOLE 40 MG TABLET PO SCH (09:24)
[2022-12-14] MEDS: BUDESONIDE/FORMETEROL FUMARATE 160/4.5 mcg INHALER IH SCH (09:24)
[2022-12-14] MEDS: PRENATAL VITAMINS W/ FOLIC ACID TABLET (FP) PO SCH (09:24)
[2022-12-14 09:42] VITALS: BP 147/93; PULSE 92; RESP 16; TEMP 97.7
== END 2022-12-14 09:31 | disposition home or self-care (01) | DRG 951 ==
LOC: YASAS 11:12 → Y6N 13:40
PROVIDERS: ADMIT Allergy & Immunology; ATTEND Surgery
PROC: HZ2ZZZZ Detoxification Services for Substance Abuse Treatment (ICD-10-PCS; principal; 2022-12-10)
DX: F17.210 Nicotine dependence, cigarettes, uncomplicated (principal); F10.280 Alcohol dependence with alcohol-induced anxiety disorder; F10.24 Alcohol dependence with alcohol-induced mood disorder; F10.282 Alcohol dependence with alcohol-induced sleep disorder; F19.24 Other psychoactive substance dependence with psychoactive substance-induced mood disorder; E78.5 Hyperlipidemia, unspecified; I10 Essential (primary) hypertension; J45.20 Mild intermittent asthma, uncomplicated; K21.9 Gastro-esophageal reflux disease without esophagitis; E11.9 Type 2 diabetes mellitus without complications; Z79.84 Long term (current) use of oral hypoglycemic drugs; R00.0 Tachycardia, unspecified; M1A.9XX0 Chronic gout, unspecified, without tophus (tophi); M54.50 Low back pain, unspecified; G89.29 Other chronic pain; Z99.89 Dependence on other enabling machines and devices; Z91.013 Allergy to seafood
CPT/HCPCS: 36415; 80053; 82140; 82962; 85027; 86780; C9803-CS; U0003; U0005

== ENCOUNTER 2024-03-26 09:26 | Inpatient (IN) | payer OTHER ==
[2024-03-26 09:57] VITALS: BMI 37.8
[2024-03-26] MEDS ORDERED: guaiFENesin 600 MG TABLET.ER (FP) PO PRN (10:31)
[2024-03-26] MEDS ORDERED: IBUPROFEN 600 MG TABLET (FP) PO PRN (10:31)
[2024-03-26] MEDS ORDERED: NICOTINE POLACRILEX 2 MG LOZENGE BC PRN (10:31)
[2024-03-26] MEDS ORDERED: BISMUTH SUBSALICYLATE 262 MG/15 ML BTL PO PRN (10:31)
[2024-03-26] MEDS ORDERED: POLYETHYLENE GLYCOL (HEALTHYLAX) 3350 17 GM PACKET PO PRN (10:31)
[2024-03-26] MEDS ORDERED: LOPERAMIDE HCL 2 MG CAPSULE PO PRN (10:31)
[2024-03-26] MEDS ORDERED: BENZONATATE 200 MG CAPSULE PO PRN (10:31)
[2024-03-26] MEDS ORDERED: ONDANSETRON *ODT* 4 MG TABLET SL PRN (10:31)
[2024-03-26] MEDS ORDERED: NICOTINE POLACRILEX 2 MG GUM BUC PRN (10:31)
[2024-03-26] MEDS ORDERED: MAG HYDROX/AL HYDROX/SIMETH 30 ML UNIT-DOSE CUP PO PRN (10:31)
[2024-03-26] MEDS ORDERED: BENZOCAINE/MENTHOL (CHLORASEPTIC ) LOZENGE MM PRN (10:31)
[2024-03-26] MEDS ORDERED: IBUPROFEN 400 MG TABLET (FP) PO PRN (10:31)
[2024-03-26] MEDS ORDERED: ALBUTEROL SO4 HFA INHALER IH PRN (10:32)
[2024-03-26] MEDS: MAGNESIUM HYDROX 2400MG/30ML ORAL SUSPENSION 30 ML CUP PO PRN (13:54)
[2024-03-26] MEDS ORDERED: chlordiazePOXIDE HCL 25 MG CAPSULE PO PRN (14:37)
[2024-03-26 16:50] VITALS: BP 130/87; PULSE 94; RESP 17; TEMP 97.8
[2024-03-26] MEDS: chlordiazePOXIDE HCL 25 MG CAPSULE PO SCH (17:06)
[2024-03-26] MEDS: ACETAMINOPHEN 325 MG TABLET (FP) PO PRN (17:32)
[2024-03-26] MEDS ORDERED: FAMOTIDINE 20 MG TABLET PO SCH (22:00)
[2024-03-26] MEDS ORDERED: PATIENT'S OWN MEDICATION (NON-FORMULARY) (Ezetimibe/Simvastatin [Ezetimibe-Simvastatin 10- PO SCH (22:00)
[2024-03-26] MEDS ORDERED: ACAMPROSATE CALCIUM 333 MG TABLET.DR PO SCH (22:00)
[2024-03-26] MEDS ORDERED: TAMSULOSIN HCL 0.4 MG CAP PO SCH (22:00)
[2024-03-26] MEDS ORDERED: GABAPENTIN 100 MG CAPSULE PO SCH (22:00)
[2024-03-26] MEDS ORDERED: ATORVASTATIN CA 10 MG TABLET (FP) PO SCH (22:00)
[2024-03-26] MEDS ORDERED: MELATONIN 5 MG TABLETS PO SCH (22:00)
[2024-03-26] MEDS ORDERED: THIAMINE 100 MG TABLET PO SCH (22:00)
[2024-03-26] MEDS ORDERED: EZETIMIBE 10 MG TABLET (FP) PO SCH (22:00)
[2024-03-27] MEDS ORDERED: chlordiazePOXIDE HCL 25 MG CAPSULE PO SCH (05:00)
[2024-03-27] MEDS ORDERED: FOLIC ACID 1 MG TABLET (FP) PO SCH (10:00)
[2024-03-27] MEDS ORDERED: PRENATAL VITAMINS W/ FOLIC ACID TABLET (FP) PO SCH (10:00)
[2024-03-27] MEDS ORDERED: DAPAGLIFLOZIN PROPANEDIOL 10 MG TABLET PO SCH (10:00)
[2024-03-27] MEDS ORDERED: LOSARTAN POTASSIUM 50 MG TABLET PO SCH (10:00)
[2024-03-27] MEDS ORDERED: ASPIRIN 81 MG CHEWABLE TABLETS PO SCH (10:00)
[2024-03-28] MEDS ORDERED: chlordiazePOXIDE HCL 10 MG CAPSULE PO PRN
[2024-03-28] MEDS ORDERED: chlordiazePOXIDE HCL 10 MG CAPSULE PO SCH (05:00)
[2024-03-29] MEDS ORDERED: chlordiazePOXIDE HCL 10 MG CAPSULE PO SCH (05:00)
[2024-03-30] MEDS ORDERED: chlordiazePOXIDE HCL 10 MG CAPSULE PO ONE (05:00)
== END 2024-03-26 18:36 | disposition left against medical advice (07) | DRG 894 ==
LOC: YASAS 09:26 → Y6N 11:53
PROVIDERS: ADMIT Allergy & Immunology; ATTEND Surgery
PROC: HZ2ZZZZ Detoxification Services for Substance Abuse Treatment (ICD-10-PCS; principal; 2024-03-26)
DX: F10.230 Alcohol dependence with withdrawal, uncomplicated (principal); F17.210 Nicotine dependence, cigarettes, uncomplicated; E78.5 Hyperlipidemia, unspecified; I10 Essential (primary) hypertension; E11.9 Type 2 diabetes mellitus without complications; Z79.4 Long term (current) use of insulin; J45.909 Unspecified asthma, uncomplicated; M10.9 Gout, unspecified; M54.50 Low back pain, unspecified; G89.29 Other chronic pain; Z99.89 Dependence on other enabling machines and devices
CPT/HCPCS: 80305; 82962

== ENCOUNTER 2024-07-29 14:01 | Inpatient (IN) | payer OTHER ==
[2024-07-29 14:25] VITALS: BMI 37.5
[2024-07-29] MEDS ORDERED: ONDANSETRON *ODT* 4 MG TABLET SL PRN (18:16)
[2024-07-29] MEDS ORDERED: BENZOCAINE/MENTHOL (CHLORASEPTIC ) LOZENGE MM PRN (18:16)
[2024-07-29] MEDS ORDERED: BENZONATATE 200 MG CAPSULE PO PRN (18:16)
[2024-07-29] MEDS ORDERED: DICYCLOMINE HCL 10 MG CAPSULE PO PRN (18:16)
[2024-07-29] MEDS ORDERED: POLYETHYLENE GLYCOL (HEALTHYLAX) 3350 17 GM PACKET PO PRN (18:16)
[2024-07-29] MEDS ORDERED: IBUPROFEN 400 MG TABLET (FP) PO PRN (18:16)
[2024-07-29] MEDS ORDERED: BISMUTH SUBSALICYLATE 524 MG/30 ML PO PRN (18:16)
[2024-07-29] MEDS ORDERED: LOPERAMIDE HCL 2 MG CAPSULE PO PRN (18:16)
[2024-07-29] MEDS ORDERED: NALOXONE (NARCAN) HCL 4 MG/0.1 ML SPRAY NS PRN (18:16)
[2024-07-29] MEDS ORDERED: PATIENT'S OWN MEDICATION (NON-FORMULARY) (Ezetimibe/Simvastatin [Ezetimibe-Simvastatin 10- PO SCH (22:00)
[2024-07-29] MEDS: ATORVASTATIN CA 10 MG TABLET (FP) PO SCH (22:04)
[2024-07-29] MEDS: THIAMINE 100 MG TABLET PO SCH (22:05)
[2024-07-29] MEDS: FAMOTIDINE 20 MG TABLET PO SCH (22:05)
[2024-07-29] MEDS: LORazepam 2 MG TABLET PO SCH (22:05)
[2024-07-29] MEDS: LOSARTAN POTASSIUM 50 MG TABLET PO SCH (22:05)
[2024-07-29] MEDS: TAMSULOSIN HCL 0.4 MG CAP PO SCH (22:05)
[2024-07-29] MEDS: MELATONIN 5 MG TABLETS PO SCH (22:06)
[2024-07-29] MEDS: ACETAMINOPHEN 325 MG TABLET (FP) PO PRN (22:14)
[2024-07-29] MEDS: EZETIMIBE 10 MG TABLET (FP) PO SCH (22:59)
[2024-07-30] MEDS: LORazepam 1 MG TABLET PO PRN (02:18)
[2024-07-30] MEDS: PRENATAL VITAMINS W/ FOLIC ACID TABLET (FP) PO SCH (09:33)
[2024-07-30] MEDS: ASPIRIN 81 MG CHEWABLE TABLETS PO SCH (09:33)
[2024-07-30] MEDS: IBUPROFEN 600 MG TABLET (FP) PO PRN (09:37)
[2024-07-30] MEDS: EMPAGLIFLOZIN (JARDIANCE) 10 MG TABLET PO SCH (10:54)
[2024-07-30 11:29] LABS: HEMOGLOBIN 10.9 GM/dL (11.7-16.9); MCH 30.6 pg (25.7-33.7); MCHC 33.1 g/dl (32.0-35.9); MEAN CELL VOLUME 92.5 fl (80-96); MEAN PLT VOLUME 7.5 fl (7.5-11.1); PLATELET COUNT 54 10^3/uL (134-434); RBC 3.57 M/mm3 (4.00-5.60); RDW 19.9 % (11.9-15.9); WHITE BLOOD COUNT 2.9 K/mm3 (4.0-10.0)
[2024-07-30 11:42] LABS: CHLORIDE 107 mmol/L (98-107); POTASSIUM 3.6 mmol/L (3.5-5.1); SODIUM 140 mmol/L (136-145)
[2024-07-30 11:45] LABS: ALBUMIN 3.4 g/dl (3.4-5.0); ANION GAP 8 mmol/L (4-13); BLOOD UREA NITROGEN 12.7 mg/dL (7-18); CO2 25 mmol/L (21-32)
[2024-07-30 11:46] LABS: GLUCOSE,RANDOM 119 mg/dL (74-106)
[2024-07-30 11:47] LABS: SGOT/AST 64 U/L (15-37); SGPT/ALT 26 U/L (13-61)
[2024-07-30 11:48] LABS: CREATININE 0.8 mg/dL (0.55-1.3)
[2024-07-30 11:49] LABS: BILIRUBIN,TOTAL 0.9 mg/dL (0.2-1); TOT PROT 6.2 g/dl (6.4-8.2)
[2024-07-30 11:51] LABS: ALK PHOS 72 U/L (45-117)
[2024-07-30] MEDS ORDERED: ATORVASTATIN CA 40 MG TABLET (FP) PO SCH (22:00)
[2024-07-30] MEDS: METHOCARBAMOL 500 MG TABLET PO PRN (22:11)
[2024-07-30] MEDS: traZODone HCL 50 MG TABLET (FP) PO SCH (22:11)
[2024-07-30] MEDS: ACETAMINOPHEN 325 MG TABLET (FP) PO PRN (22:13)
[2024-07-30] MEDS: BUDESONIDE/FORMETEROL FUMARATE 160/4.5 mcg INHALER IH SCH (22:14)
[2024-07-31] MEDS: LORazepam 1 MG TABLET PO SCH (05:34)
[2024-07-31] MEDS: PSYLLIUM 5.85 GM PACKET PO SCH (09:52)
[2024-07-31 11:24] LABS: BASO % 0.2 % (0-2.0); EOS % 2.9 % (0-4.5); HEMATOCRIT 34.5 % (35.4-49); HEMOGLOBIN 11.6 GM/dL (11.7-16.9); LYMPH % 14.3 % (8-40); MCH 30.8 pg (25.7-33.7); MCHC 33.5 g/dl (32.0-35.9); MEAN CELL VOLUME 91.8 fl (80-96); MEAN PLT VOLUME 7.8 fl (7.5-11.1); MONO % 9.3 % (3.8-10.2); NEUT % 73.3 % (42.8-82.8); PLATELET COUNT 56 10^3/uL (134-434); RBC 3.76 M/mm3 (4.00-5.60); RDW 20.6 % (11.9-15.9); WHITE BLOOD COUNT 3.7 K/mm3 (4.0-10.0)
[2024-07-31 11:54] LABS: ANISOCYTOSIS 2+; MACROCYTOSIS 0
[2024-07-31] MEDS: GABAPENTIN 100 MG CAPSULE PO SCH (14:45)
[2024-07-31] MEDS: guaiFENesin 600 MG TABLET.ER (FP) PO PRN (14:47)
[2024-07-31] MEDS: TAMSULOSIN HCL 0.4 MG CAP PO SCH (17:10)
[2024-07-31] MEDS: ARTIFICIAL TEARS OPHTHALMIC DROPS OU PRN (17:15)
[2024-08-01] MEDS ORDERED: LORazepam 0.5 MG TABLET PO PRN
[2024-08-01] MEDS: LORazepam 0.5 MG TABLET PO SCH (05:30)
[2024-08-01] MEDS: MAGNESIUM HYDROX 2400MG/30ML ORAL SUSPENSION 30 ML CUP PO PRN (10:17)
[2024-08-01] MEDS: NALOXONE (NYS OPIOID OVERDOSE PROGRAM) 4 MG/0.1 ML SPRAY NS SCH (12:02)
[2024-08-01] MEDS: hydrOXYzine PAMOATE 25 MG CAPSULE (FP) PO PRN (17:24)
[2024-08-01 21:05] LABS: PH,URINE 6.5 (5.0-8.0); URINE APPEARANCE CLEAR; URINE BILIRUBIN NEGATIVE (NEGATIVE); URINE COLOR YELLOW; URINE GLUCOSE (UA) 3+ (NEGATIVE); URINE KETONE TRACE (NEGATIVE); URINE LEUK ESTERASE NEGATIVE (NEGATIVE); URINE NITRITE NEGATIVE (NEGATIVE); URINE PROTEIN NEGATIVE (NEGATIVE); URINE UROBILINOGEN 0.2 mg/dL (0.2-1.0)
[2024-08-02] MEDS: LORazepam 0.5 MG TABLET PO ONE (05:37)
[2024-08-02 07:06] VITALS: RESP 18
[2024-08-02] MEDS: MAG HYDROX/AL HYDROX/SIMETH 30 ML UNIT-DOSE CUP PO PRN (08:47)
[2024-08-02 08:55] VITALS: BP 127/86; PULSE 103; TEMP 97.8
[2024-08-02] MEDS ORDERED: IBUPROFEN 400 MG TABLET (FP) PO ONE (09:30)
== END 2024-08-02 09:20 | disposition home or self-care (01) | DRG 897 ==
LOC: YASAS 14:01 → Y6N 19:44
PROVIDERS: ADMIT Surgery; ATTEND Surgery
PROC: HZ2ZZZZ Detoxification Services for Substance Abuse Treatment (ICD-10-PCS; principal; 2024-07-29)
DX: F10.230 Alcohol dependence with withdrawal, uncomplicated (principal); F17.210 Nicotine dependence, cigarettes, uncomplicated; F10.282 Alcohol dependence with alcohol-induced sleep disorder; F32.A Depression, unspecified; I25.10 Atherosclerotic heart disease of native coronary artery without angina pectoris; I10 Essential (primary) hypertension; J45.20 Mild intermittent asthma, uncomplicated; K21.9 Gastro-esophageal reflux disease without esophagitis; E78.5 Hyperlipidemia, unspecified; E11.9 Type 2 diabetes mellitus without complications; Z79.84 Long term (current) use of oral hypoglycemic drugs; M1A.9XX0 Chronic gout, unspecified, without tophus (tophi); M54.50 Low back pain, unspecified; G89.29 Other chronic pain; N40.0 Benign prostatic hyperplasia without lower urinary tract symptoms; G62.9 Polyneuropathy, unspecified; Z99.89 Dependence on other enabling machines and devices
CPT/HCPCS: 36415; 80053; 80305; 80307; 81003; 82962; 85025; 85027; 86780; 93005; 93010

== ENCOUNTER 2025-03-08 18:40 | Inpatient (IN) | payer OTHER ==
[2025-03-08 20:09] LABS: INR 0.93 (0.83-1.09); PROTHROMBIN TIME (PATIENT) 10.2 SEC (9.7-13.0)
[2025-03-08 20:23] LABS: CO2 23.0 mmol/L (21-32); GLUCOSE,RANDOM 166.0 mg/dL (74-106)
[2025-03-08 20:26] LABS: CREATININE 1.0 mg/dL (0.55-1.3); SGPT/ALT 30.0 U/L (13-61)
[2025-03-08 20:27] LABS: SGOT/AST 63.0 U/L (15-37)
[2025-03-08 20:28] LABS: TOT PROT 7.2 g/dl (6.4-8.2)
[2025-03-08 20:29] LABS: ALK PHOS 92.0 U/L (45-117)
[2025-03-08 21:16] LABS: HCV DIAGNOSTIC IN-HOUSE W/RFLX NON-REACTIVE (NONREACTIVE); HIV INTERPRETATION NEGATIVE (NEGATIVE)
[2025-03-08] MEDS ORDERED: ACETAMINOPHEN INJECTION 100 ML ONE (21:18)
[2025-03-08 22:10] LABS: ABSOLUTE IMMATURE GRANULOCYTES 0.01 x10^3/uL (0.0-0.031); BASOPHILS # 0.02 x10^3/uL (0.01-0.08); EOSINOPHIL % 1.8 % (0.8-7.0); EOSINOPHILS # 0.05 x10^3/uL (0.04-0.54); MCHC 31.5 g/dl (32.3-36.5); MEAN CELL VOLUME 95.5 fl (79.0-92.2); MEAN PLT VOLUME 8.6 fl (9.4-12.4); MONOCYTE # 0.48 x10^3/uL (0.30-0.82); MONOCYTE % 16.9 % (5.3-12.2); RDW 18.3 % (12.2-16.4)
[2025-03-08 22:13] LABS: CO2 25 mmol/L (21-32); GLUCOSE,RANDOM 165 mg/dL (74-106)
[2025-03-08 22:16] LABS: CREATININE 0.9 mg/dL (0.55-1.3); SGOT/AST 48 U/L (15-37); SGPT/ALT 27 U/L (13-61)
[2025-03-08 22:18] LABS: TOT PROT 6.8 g/dl (6.4-8.2)
[2025-03-08 22:19] LABS: ALK PHOS 82 U/L (45-117)
[2025-03-08] MEDS: SODIUM CHLORIDE 0.9% 500 ML INFUS.BAG IV ONE (22:49)
[2025-03-08] MEDS: ACETAMINOPHEN 1000 MG/100 ML BAG IVPB ONE (22:50)
[2025-03-08] MEDS ORDERED: POTASSIUM CHLORIDE ORAL LIQUID 20 MEQ/15 ML ONE (23:14)
[2025-03-08] MEDS ORDERED: KCL 10 MEQ IVPB 20 MEQ/200 ML INFUS.BAG IVPB ONE (23:14)
[2025-03-08] MEDS: KCL 10 MEQ IVPB 10 MEQ/100 ML INFUS.BAG IVPB SCH (23:40)
[2025-03-09] MEDS: POTASSIUM CHLORIDE ORAL LIQUID 20 MEQ/15 ML PO ONE (00:08)
[2025-03-09] MEDS ORDERED: KCL 10 MEQ IVPB 10 MEQ/100 ML INFUS.BAG IVPB ONE (01:49)
[2025-03-09] MEDS ORDERED: dilTIAZem HCL 125 MG/25 ML - 25 ML VIAL ONE ×3 (02:24→03:13)
[2025-03-09] MEDS: SODIUM CHLORIDE 500 ML IV STA (02:42)
[2025-03-09] MEDS: dilTIAZem HCL 50 MG/10 ML - 10 ML VIAL IVPUSH ONE ×5 (02:42→03:32)
[2025-03-09] MEDS ORDERED: dilTIAZem HCL 50 MG/10 ML - 10 ML VIAL IVPUSH PRN (03:34)
[2025-03-09 03:59] LABS: N-TERMINAL BNP 113.7 pg/ml (5-125)
[2025-03-09] MEDS: DIGOXIN 0.5 MG/2 ML AMPUL IVPUSH ONE (04:13)
[2025-03-09] MEDS ORDERED: MAGNESIUM SULFATE IN WATER 2 GM/50 ML IVPB IVPB ONE ×2 (04:38→06:50)
[2025-03-09] MEDS: MAGNESIUM SULF 50% (8.12 MEQ/2 ML-1 GM VIAL) IVPB ONE (04:43)
[2025-03-09] MEDS: SODIUM CHLORIDE 0.9% 500 ML INFUS.BAG IV ONE (04:43)
[2025-03-09] MEDS: LORazepam 2 MG/ML SDV VIAL IVPUSH ONE (04:47)
[2025-03-09] MEDS ORDERED: FOLIC ACID 1 MG TABLET (FP) ONE (04:53)
[2025-03-09] MEDS: MIDODRINE HCL 5 MG TABLET PO ONE (05:00)
[2025-03-09] MEDS: FOLIC ACID 1 MG TABLET (FP) PO ONE (05:00)
[2025-03-09] MEDS: SODIUM CHLORIDE 1,000 ML with POTASSIUM CHLORIDE 40 MEQ IV SCH (06:53)
[2025-03-09] MEDS: MAGNESIUM SULFATE IN WATER 2 GM/50 ML IVPB IVPB ONE (06:53)
[2025-03-09 07:36] LABS: MCHC 31.0 g/dl (32.3-36.5); MEAN CELL VOLUME 94.7 fl (79.0-92.2); MEAN PLT VOLUME 9.1 fl (9.4-12.4); RDW 18.1 % (12.2-16.4)
[2025-03-09] MEDS ORDERED: LORazepam 4 MG/1 ML VIAL IVPUSH PRN (07:38)
[2025-03-09 08:06] LABS: CO2 23.0 mmol/L (21-32); GLUCOSE,RANDOM 142.0 mg/dL (74-106)
[2025-03-09 08:09] LABS: CREATININE 0.7 mg/dL (0.55-1.3); SGOT/AST 43.0 U/L (15-37); SGPT/ALT 25.0 U/L (13-61)
[2025-03-09 08:11] LABS: TOT PROT 6.2 g/dl (6.4-8.2)
[2025-03-09 08:12] LABS: ALK PHOS 67.0 U/L (45-117)
[2025-03-09] MEDS: INSULIN ASPART SLIDING SCALE (NOVOLOG) 1 VIAL SQ SCH (08:20)
[2025-03-09] MEDS ORDERED: FAMOTIDINE 10 MG TABLET ONE (09:06)
[2025-03-09] MEDS ORDERED: APIXABAN 5 MG TABLET ONE (09:06)
[2025-03-09] MEDS ORDERED: THIAMINE 100 MG TABLET ONE (09:06)
[2025-03-09] MEDS ORDERED: PANTOPRAZOLE 20 MG TABLET PO ONE (09:49)
[2025-03-09] MEDS ORDERED: ENOXAPARIN NA (PORCINE) 40 MG/0.4 ML DISP.SYRIN SQ SCH (10:00)
[2025-03-09] MEDS ORDERED: FAMOTIDINE 10 MG TABLET PO SCH (10:00)
[2025-03-09] MEDS ORDERED: DIGOXIN 0.5 MG/2 ML AMPUL IVPUSH ONE (10:00)
[2025-03-09] MEDS: PANTOPRAZOLE 20 MG TABLET PO SCH (10:15)
[2025-03-09] MEDS: APIXABAN 5 MG TABLET PO SCH (10:15)
[2025-03-09] MEDS: THIAMINE 100 MG TABLET PO SCH (10:16)
[2025-03-09] MEDS: CYANOCOBALAMIN 1,000 MCG TABLET (FP) PO SCH (10:43)
[2025-03-09] MEDS ORDERED: INSULIN ASPART SLIDING SCALE (NOVOLOG) 1 VIAL SQ ONE (12:19)
[2025-03-09 12:29] LABS: COCAINE, UR NEGATIVE (NEGATIVE); URINE BARBITURATES NEGATIVE (NEGATIVE)
[2025-03-09 12:30] LABS: METHADONE, UR NEGATIVE (NEGATIVE); PHENCYCLIDINE,URINE NEGATIVE (NEGATIVE); URINE AMPHETAMINES NEGATIVE (NEGATIVE); URINE BENZODIAZEPINES POSITIVE (NEGATIVE)
[2025-03-09 12:35] LABS: OPIATES, URI NEGATIVE (NEGATIVE)
[2025-03-09] MEDS: SODIUM CHLORIDE 1,000 ML with POTASSIUM CHLORIDE 30 MEQ IV SCH (13:05)
[2025-03-09 22:27] VITALS: BMI 38.7
[2025-03-09] MEDS: MELATONIN 5 MG TABLETS PO SCH (22:43)
[2025-03-10 07:42] LABS: ABSOLUTE IMMATURE GRANULOCYTES 0.01 x10^3/uL (0.0-0.031); BASOPHILS # 0.02 x10^3/uL (0.01-0.08); EOSINOPHIL % 1.7 % (0.8-7.0); EOSINOPHILS # 0.06 x10^3/uL (0.04-0.54); MCHC 31.1 g/dl (32.3-36.5); MEAN CELL VOLUME 95.6 fl (79.0-92.2); MEAN PLT VOLUME 10.1 fl (9.4-12.4); MONOCYTE # 0.56 x10^3/uL (0.30-0.82); MONOCYTE % 15.7 % (5.3-12.2); RDW 17.8 % (12.2-16.4)
[2025-03-10 08:12] LABS: CO2 27.0 mmol/L (21-32); GLUCOSE,RANDOM 136.0 mg/dL (74-106)
[2025-03-10 08:15] LABS: CREATININE 0.6 mg/dL (0.55-1.3)
[2025-03-10 08:16] LABS: SGOT/AST 33.0 U/L (15-37); SGPT/ALT 24.0 U/L (13-61)
[2025-03-10 08:17] LABS: TOT PROT 6.0 g/dl (6.4-8.2)
[2025-03-10 08:18] LABS: ALK PHOS 58.0 U/L (45-117)
[2025-03-10] MEDS: MAGNESIUM SULFATE IN WATER 2 GM/50 ML IVPB IVPB ONE (09:02)
[2025-03-10] MEDS: ONDANSETRON 4 MG/2 ML VIAL IVPUSH PRN (09:02)
[2025-03-10] MEDS: POTASSIUM CHLORIDE ORAL LIQUID 20 MEQ/15 ML PO ONE (09:18)
[2025-03-10] MEDS: NAPH,MB-DB/K PH,MBDB POWDER PACKET PO ONE (09:18)
[2025-03-10] MEDS ORDERED: POTASSIUM CHLORIDE ORAL LIQUID 20 MEQ/15 ML PO ONE (09:30)
[2025-03-10] MEDS: FUROSEMIDE 40 MG/4 ML INJECTABLE VIAL IVPUSH SCH (11:57)
[2025-03-10] MEDS: TAMSULOSIN HCL 0.4 MG CAP PO SCH (11:57)
[2025-03-10] MEDS: predniSONE 20 MG TABLET (UD) PO SCH (16:55)
[2025-03-10] MEDS: ACETAMINOPHEN 1000 MG/100 ML BAG IVPB PRN (16:56)
[2025-03-10] MEDS ORDERED: ALBUTEROL SO4 HFA INHALER IH PRN (17:30)
[2025-03-10] MEDS: POTASSIUM PHOSPHATE 30 MM in SODIUM CHLORIDE 500 ML IVPB ONE (17:33)
[2025-03-10] MEDS ORDERED: MELATONIN 5 MG TABLETS PO SCH (22:00)
[2025-03-10] MEDS ORDERED: PATIENT'S OWN MEDICATION (NON-FORMULARY) (Melatonin [Melatonin] 3 MG Capsule) PO SCH (22:00)
[2025-03-10] MEDS: GABAPENTIN 100 MG CAPSULE PO SCH (22:09)
[2025-03-10] MEDS: MONTELUKAST NA 10 MG TABLET PO SCH (22:09)
[2025-03-10] MEDS: traZODone HCL 50 MG TABLET (FP) PO SCH (22:10)
[2025-03-10] MEDS: BUDESONIDE/FORMETEROL FUMARATE 160/4.5 mcg INHALER IH SCH (22:11)
[2025-03-11 07:56] LABS: MCHC 31.4 g/dl (32.3-36.5); MEAN CELL VOLUME 95.1 fl (79.0-92.2); MEAN PLT VOLUME 9.6 fl (9.4-12.4); RDW 17.4 % (12.2-16.4)
[2025-03-11 08:19] LABS: CO2 25.0 mmol/L (21-32); GLUCOSE,RANDOM 162.0 mg/dL (74-106)
[2025-03-11 08:21] LABS: CREATININE 0.7 mg/dL (0.55-1.3)
[2025-03-11 08:22] LABS: SGOT/AST 27.0 U/L (15-37); SGPT/ALT 21.0 U/L (13-61)
[2025-03-11 08:24] LABS: TOT PROT 6.3 g/dl (6.4-8.2)
[2025-03-11 08:26] LABS: ALK PHOS 60.0 U/L (45-117)
[2025-03-11] MEDS ORDERED: LOSARTAN POTASSIUM 50 MG TABLET PO SCH (10:00)
[2025-03-11] MEDS: LOSARTAN POTASSIUM 50 MG TABLET PO SCH (10:09)
[2025-03-11] MEDS: ASPIRIN COATED 81 MG TABLET.EC PO SCH (10:10)
[2025-03-11] MEDS: THIAMINE 100 MG TABLET PO SCH (10:10)
[2025-03-11] MEDS: TAMSULOSIN HCL 0.4 MG CAP PO SCH (21:56)
[2025-03-12] MEDS: MAGNESIUM HYDROX 2400MG/30ML ORAL SUSPENSION 30 ML CUP PO ONE (06:48)
[2025-03-12 07:09] LABS: IMMATURE PLATELET FRACTION # 2.80 x10^3/uL; MCHC 31.6 g/dl (32.3-36.5); MEAN CELL VOLUME 96.7 fl (79.0-92.2); MEAN PLT VOLUME 9.1 fl (9.4-12.4); RDW 17.5 % (12.2-16.4)
[2025-03-12 07:25] LABS: CO2 29.0 mmol/L (21-32); GLUCOSE,RANDOM 153.0 mg/dL (74-106)
[2025-03-12 07:28] LABS: CREATININE 0.8 mg/dL (0.55-1.3); SGOT/AST 28.0 U/L (15-37); SGPT/ALT 19.0 U/L (13-61)
[2025-03-12 07:30] LABS: TOT PROT 6.3 g/dl (6.4-8.2)
[2025-03-12 07:31] LABS: ALK PHOS 58.0 U/L (45-117)
[2025-03-12] MEDS ORDERED: ALBUTEROL SO4 0.083% IH SOL 2.5 MG/3 ML VIAL.NEB. NEB ONE (17:18)
[2025-03-12] MEDS: ALBUTEROL SO4 2.5/IPRATROPIUM 0.5 INH SOL 3 ML VIAL.NEB. NEB SCH (20:26)
[2025-03-12] MEDS: NYSTATIN POWDER 100,000 UNITS/GM - 15 GM TOPICAL POWDER TP SCH (21:33)
[2025-03-12] MEDS ORDERED: MAGNESIUM HYDROX 2400MG/30ML ORAL SUSPENSION 30 ML CUP PO ONE (22:15)
[2025-03-12] MEDS: BENZOCAINE/MENTH/CETYLPYRD CL 1 EACH LOZENGE MM PRN (23:47)
[2025-03-13] MEDS: MAGNESIUM HYDROX 2400MG/30ML ORAL SUSPENSION 30 ML CUP PO ONE (04:40)
[2025-03-13 08:08] LABS: MCHC 31.9 g/dl (32.3-36.5); MEAN CELL VOLUME 94.8 fl (79.0-92.2); MEAN PLT VOLUME 9.7 fl (9.4-12.4); RDW 17.0 % (12.2-16.4)
[2025-03-13 08:40] LABS: CO2 26.0 mmol/L (21-32); GLUCOSE,RANDOM 161.0 mg/dL (74-106)
[2025-03-13 08:44] LABS: CREATININE 0.7 mg/dL (0.55-1.3)
[2025-03-13] MEDS: FUROSEMIDE 40 MG TABLET (FP) PO SCH (09:36)
[2025-03-13] MEDS: POTASSIUM CHLORIDE ORAL LIQUID 20 MEQ/15 ML PO ONE (09:48)
[2025-03-13] MEDS ORDERED: METOPROLOL TARTRATE 25 MG TABLET (FP) PO SCH (10:00)
[2025-03-13] MEDS ORDERED: INSULIN ASPART SLIDING SCALE (NOVOLOG) 1 VIAL SQ ONE ×2 (12:10→17:22)
[2025-03-13 19:38] VITALS: RESP 18
[2025-03-14 07:26] LABS: ABSOLUTE IMMATURE GRANULOCYTES 0.02 x10^3/uL (0.0-0.031); BASOPHILS # 0.01 x10^3/uL (0.01-0.08); EOSINOPHIL % 0.2 % (0.8-7.0); EOSINOPHILS # 0.01 x10^3/uL (0.04-0.54); MCHC 31.2 g/dl (32.3-36.5); MEAN CELL VOLUME 95.3 fl (79.0-92.2); MEAN PLT VOLUME 9.5 fl (9.4-12.4); MONOCYTE # 0.91 x10^3/uL (0.30-0.82); MONOCYTE % 14.8 % (5.3-12.2); RDW 17.2 % (12.2-16.4)
[2025-03-14 07:41] LABS: GLUCOSE,RANDOM 159.0 mg/dL (74-106)
[2025-03-14 07:42] LABS: CO2 26.0 mmol/L (21-32)
[2025-03-14 07:43] LABS: CREATININE 0.8 mg/dL (0.55-1.3); SGOT/AST 45.0 U/L (15-37); SGPT/ALT 30.0 U/L (13-61)
[2025-03-14 07:45] LABS: TOT PROT 6.3 g/dl (6.4-8.2)
[2025-03-14 07:46] LABS: ALK PHOS 58.0 U/L (45-117)
[2025-03-14 09:33] VITALS: BP 101/61; PULSE 88; TEMP 98.1
== END 2025-03-14 10:42 | disposition home or self-care (01) | DRG 309 ==
LOC: JER 18:40 → JERBED 23:32 → J4W 03-09 21:43
PROVIDERS: ADMIT Hospitalist; ATTEND Internal Medicine
DX: I48.19 Other persistent atrial fibrillation (principal); F10.239 Alcohol dependence with withdrawal, unspecified; I50.32 Chronic diastolic (congestive) heart failure; I50.22 Chronic systolic (congestive) heart failure; G61.81 Chronic inflammatory demyelinating polyneuritis; J45.909 Unspecified asthma, uncomplicated; I11.0 Hypertensive heart disease with heart failure; E11.9 Type 2 diabetes mellitus without complications; I35.1 Nonrheumatic aortic (valve) insufficiency; E66.9 Obesity, unspecified; E78.5 Hyperlipidemia, unspecified; M19.90 Unspecified osteoarthritis, unspecified site; K21.9 Gastro-esophageal reflux disease without esophagitis; I42.6 Alcoholic cardiomyopathy; G62.1 Alcoholic polyneuropathy; E11.42 Type 2 diabetes mellitus with diabetic polyneuropathy; M54.16 Radiculopathy, lumbar region; M17.0 Bilateral primary osteoarthritis of knee; E53.8 Deficiency of other specified B group vitamins
CPT/HCPCS: 36415; 70450-TC; 70486-TC; 71045-TC-FY; 72125-TC; 72170-TC-FY; 73502-TC-LT-FY; 73552-TC-LT-FY; 73560-TC-RT-FY; 73590-TC-RT-FY; 73610-TC-RT-FY; 73630-TC-RT-FY; 74177-TC; 80048; 80053; 80307; 82550; 82553; 82607; 82746; 82962; 83036; 83735; 83880; 84100; 84132; 84443; 84484; 85025; 85027; 85610; 86803; 87389; 87635; 93005; 93010; 93306-TC; 93971-TC; 94640; 97116-GP; 97161-GP; 99285-25; Q9967